=== PATIENT | male | born 1965 | race Caucasian/White ===

== ENCOUNTER → 2016-10-01 | Outpatient (CLI) | payer BC ==
[2016-10-01 14:05] LABS: Follicle Stimulating Hormone 4.1 mIU/mL (1.6-9.7); Prolactin 5.1 ng/mL (3.7-17.9)
== END | disposition home or self-care (01) ==
LOC: LABWHC1 08:56
PROVIDERS: ATTEND Internal Medicine
DX: E34.9 Endocrine disorder, unspecified (principal)
CPT/HCPCS: 36415; 82040; 82672; 83001; 83002; 84146; 84270; 84403; 84702

== ENCOUNTER → 2016-11-11 | Outpatient (CLI) | payer BC ==
[2016-11-11 17:11] LABS: Sex Hormone Binding Globulin 70.2 nmol/L (11.0-57.0); Testosterone, Bioavailable 234.5 ng/dL (60.8-409.9); Testosterone, Free 9.6 ng/dL (3.70-23.28)
== END | disposition home or self-care (01) ==
LOC: LABWHC1 10:14
PROVIDERS: ATTEND Family Medicine
DX: E29.1 Testicular hypofunction (principal)
CPT/HCPCS: 36415; 82040; 82672; 84270; 84403

== ENCOUNTER → 2016-11-29 | Outpatient (CLI) | payer BC ==
--- NOTE | 2016-11-29 15:49 | US ---
EXAMINATION TYPE: US scrotum with doppler. Grayscale and color Doppler Duplex imaging performed of t he scrotum. DATE OF EXAM: 11/29/2016 COMPARISON: NONE CLINICAL HISTORY: E29.1 Hypogonadism, Testicular Hypofunction. EXAM MEASUREMENTS: TESTICLES: Right Testicle: 4.4 x 2.0 x 2.7 cm Left Testicle: 4.4 x 2.1 x 2.7 cm EPIDIDYMIS HEAD: Right Epididymis: 1.2 x 0.8 x 1.3 cm Left Epididymis: 0.9 x 1.1 x 1.3 cm Doppler performed to assess for testicular vascularity; good bilateral color flow and waveforms are s een. There is no evidence of testicular torsion. Presence of hydroceles: no Presence of varicoceles: no 0.3 x 0.3 x 0.3 cm hyperechoic lesion with ill defined border; Shows vascularity IMPRESSION: 1. There is a 3 mm hyperechoic lesion within the left testicle which is nonspecific due to its small size. Testicular neoplasm in the differential diagnosis. Correlate clinically.
== END | disposition home or self-care (01) ==
LOC: RADUSWWP 15:03
PROVIDERS: ATTEND Family Medicine
DX: N50.9 Disorder of male genital organs, unspecified (principal)
CPT/HCPCS: 76870; 93975

== ENCOUNTER → 2017-01-31 | Outpatient (CLI) | payer BC ==
[2017-01-31 11:40] LABS: Basophils % (A) 1 %; CH 30.9; Eosinophils # (A) 0.1 k/uL (0-0.7); Eosinophils % (A) 2 %; HCT 50.8 % (39.0-53.0); HDW 2.39; HGB 16.6 gm/dL (13.0-17.5); Luc % (Auto) 2; Lymphocytes # (A) 1.6 k/uL (1.0-4.8); Lymphocytes % (A) 34 %; MCH 30.7 pg (25.0-35.0); MCHC 32.6 g/dL (31.0-37.0); MCV 94.2 fL (80.0-100.0); Mean Platelet Volume 7.6; Monocytes # (A) 0.4 k/uL (0-1.0); Monocytes % (A) 8 %; Neutrophils # (A) 2.5 k/uL (1.3-7.7); Neutrophils % (A) 54 %; RDW 13.1 % (11.5-15.5); WBC 4.7 k/uL (3.8-10.6); WBC (Perox) 4.31
[2017-01-31 11:50] LABS: AST 25 U/L (17-59); Alkaline Phosphatase 57 U/L (38-126); Anion Gap 10 mmol/L; Blood Urea Nitrogen 15 mg/dL (9-20); Calcium 9.1 mg/dL (8.4-10.2); Carbon Dioxide 22 mmol/L (22-30); Chloride 109 mmol/L (98-107); Glucose 90 mg/dL (74-99); Non-African American GFR(MDRD) >60 (>60 ml/min/1.73 sqM); Potassium 4.5 mmol/L (3.5-5.1); Sodium 141 mmol/L (137-145); Total Bilirubin 0.6 mg/dL (0.2-1.3); Total Protein 6.8 g/dL (6.3-8.2)
[2017-01-31 11:55] LABS: ALT 43 U/L (21-72)
== END | disposition home or self-care (01) ==
LOC: LABWHC1 10:58
PROVIDERS: ATTEND Family Medicine
DX: R53.0 Neoplastic (malignant) related fatigue (principal); R53.83 Other fatigue
CPT/HCPCS: 36415; 80053; 82672; 84153; 84402; 84403; 85025

== ENCOUNTER → 2017-03-15 | Outpatient (CLI) | payer BC ==
--- NOTE | 2017-03-16 06:51 | US ---
EXAMINATION TYPE: US scrotum with doppler. Grayscale and color Doppler Duplex imaging performed of mata sanders scrotum. DATE OF EXAM: 03/15/2017 COMPARISON: US CLINICAL HISTORY: N50.89 Left Testicular Mass. Followup EXAM MEASUREMENTS: TESTICLES: Right Testicle: 3.9 x 3.3 x 2.4 cm Left Testicle: 4.3 x 3.0 x 2.2 cm EPIDIDYMIS HEAD: Right Epididymis: 1.4 x 2.0 x 0.7 cm Left Epididymis: 1.3 x 2.0 x 1.1 cm Doppler performed to assess for testicular vascularity; good bilateral color flow and waveforms are s een. There is no evidence of testicular torsion. Presence of hydroceles: Right scrotal sac hydrocele = 3.3 x 2.4 x 1.7cm. Left scrotal sac hydrocele = 2.7 x 0.9 x 0.8cm. Right epididymal tail cyst is noted = 0.7 x 0.7 x 1.0cm Left testicle: hyperechoic oval focus is noted superiorly as imaged on prior US and size = 0.3 x 0.4 x 0.2cm. IMPRESSION: 1. Overall stable subcentimeter left hyperechoic mass. Hyperechoic testicular masses are most commonl y benign and could represent a lipoma, Small epidermoid, scarring, or less likely tumor. 2. Right epididymal 1 cm cyst. 3. Bilateral moderate hydroceles.
== END | disposition home or self-care (01) ==
LOC: RADUSWWP 15:48
PROVIDERS: ATTEND Urology
DX: N50.89 Other specified disorders of the male genital organs (principal); N50.3 Cyst of epididymis; N43.3 Hydrocele, unspecified
CPT/HCPCS: 76870; 93975

== ENCOUNTER → 2017-06-17 | Outpatient (CLI) | payer BC ==
[2017-06-20 18:42] LABS: Testosterone, Free, LC/MS/MS 67.3 pg/mL (46.0-224.0)
== END | disposition home or self-care (01) ==
LOC: LABWHC1 13:29
PROVIDERS: ATTEND Family Medicine
DX: E29.1 Testicular hypofunction (principal)
CPT/HCPCS: 36415; 82040; 82672; 84270; 84403

== ENCOUNTER → 2017-11-04 | Outpatient (CLI) | payer BC ==
[2017-11-04 14:11] LABS: Albumin 4.4 g/dL (3.5-5.0); Calcium 9.8 mg/dL (8.4-10.2); Potassium 4.7 mmol/L (3.5-5.1); Total Bilirubin 0.9 mg/dL (0.2-1.3); Total Protein 6.9 g/dL (6.3-8.2)
[2017-11-07 16:54] LABS: Testosterone, Free, LC/MS/MS 85.7 pg/mL (46.0-224.0)
== END | disposition home or self-care (01) ==
LOC: LABWHC1 12:56
PROVIDERS: ATTEND Family Medicine
DX: E29.1 Testicular hypofunction (principal)
CPT/HCPCS: 36415; 80053; 82040; 82672; 84270; 84403

== ENCOUNTER → 2018-03-07 | Outpatient (CLI) | payer BC ==
[2018-03-07 11:14] LABS: Basophils % (A) 0 %; Eosinophils % (A) 1 %; HCT 52.3 % (39.0-53.0); HGB 16.6 gm/dL (13.0-17.5); Lymphocytes # (A) 1.3 k/uL (1.0-4.8); Lymphocytes % (A) 32 %; MCH 30.4 pg (25.0-35.0); MCHC 31.7 g/dL (31.0-37.0); MCV 95.9 fL (80.0-100.0); Monocytes # (A) 0.3 k/uL (0-1.0); Monocytes % (A) 6 %; Neutrophils # (A) 2.5 k/uL (1.3-7.7); Neutrophils % (A) 59 %; Platelet Count 176 k/uL (150-450); RBC 5.45 m/uL (4.30-5.90); RDW 14.1 % (11.5-15.5); WBC 4.2 k/uL (3.8-10.6)
[2018-03-07 18:53] LABS: Albumin 4.5 g/dL (3.80-4.90); Albumin/Globulin Ratio 2.14 (1.20-2.10); Anion Gap 6.1 mmol/L (4.00-12.00); Calcium 9.4 mg/dL (8.7-10.3); Carbon Dioxide 29.9 mmol/L (21.6-31.8); Globulin 2.1 g/dL (2.1-3.7); LDL Cholesterol,Calculated 141.8 mg/dL (0.0-131.0); Potassium 4.7 mmol/L (3.5-5.5); Total Bilirubin 0.7 mg/dL (0.2-1.2); Total Protein 6.6 g/dL (6.2-8.2); VLDL Calculation 15.2 mg/dL (5.00-40.00)
[2018-03-08 19:09] LABS: Estrogens Total 53 pg/mL
== END | disposition home or self-care (01) ==
LOC: LABWHC1 10:31
PROVIDERS: ATTEND Family Medicine
DX: Z00.00 Encounter for general adult medical examination without abnormal findings (principal); E29.1 Testicular hypofunction; Z12.5 Encounter for screening for malignant neoplasm of prostate
CPT/HCPCS: 36415; 80053; 80061; 82040; 82672; 84153; 84270; 84403; 84443; 85025

== ENCOUNTER → 2018-06-13 | Outpatient (CLI) | payer BC ==
[2018-06-14 19:15] LABS: Estrogens Total 75 pg/mL
== END | disposition home or self-care (01) ==
LOC: LABWHC1 11:16
PROVIDERS: ATTEND Family Medicine
DX: E29.1 Testicular hypofunction (principal)
CPT/HCPCS: 36415; 82040; 82672; 83001; 83002; 84270; 84403

== ENCOUNTER → 2018-09-14 | Outpatient (CLI) | payer BC ==
[2018-09-15 19:27] LABS: Estrogens Total 146 pg/mL
== END | disposition home or self-care (01) ==
LOC: LABWHC1 12:05
PROVIDERS: ATTEND Family Medicine
DX: E29.1 Testicular hypofunction (principal)
CPT/HCPCS: 36415; 82040; 82672; 84270; 84403

== ENCOUNTER → 2019-01-02 | Outpatient (CLI) | payer BC ==
[2019-01-03 15:16] LABS: Estrogens Total 66 pg/mL
== END | disposition home or self-care (01) ==
LOC: LABWHC1 13:11
PROVIDERS: ATTEND Family Medicine
DX: E29.1 Testicular hypofunction (principal)
CPT/HCPCS: 36415; 82040; 82672; 84153; 84270; 84403

== ENCOUNTER → 2019-03-29 | Outpatient (CLI) | payer BC ==
[2019-03-29 11:58] LABS: Basophils % (A) 0 %; Eosinophils # (A) 0.1 k/uL (0-0.7); Eosinophils % (A) 1 %; HCT 53.2 % (39.0-53.0); HGB 17.9 gm/dL (13.0-17.5); Lymphocytes # (A) 1.5 k/uL (1.0-4.8); Lymphocytes % (A) 25 %; MCH 31.7 pg (25.0-35.0); MCHC 33.6 g/dL (31.0-37.0); MCV 94.3 fL (80.0-100.0); Mean Platelet Volume 7.4; Monocytes # (A) 0.4 k/uL (0-1.0); Monocytes % (A) 7 %; Neutrophils # (A) 3.9 k/uL (1.3-7.7); Neutrophils % (A) 65 %; Platelet Count 165 k/uL (150-450); RBC 5.64 m/uL (4.30-5.90); RDW 13.2 % (11.5-15.5); WBC 5.9 k/uL (3.8-10.6)
[2019-03-29 20:15] LABS: Albumin 4.6 g/dL (3.80-4.90); Albumin/Globulin Ratio 2.3 (1.60-3.17); Anion Gap 7.8 mmol/L (4.00-12.00); BUN/Creat Ratio 12.14 Ratio (12.00-20.00); Calcium 9.5 mg/dL (8.7-10.3); Carbon Dioxide 28.2 mmol/L (21.6-31.8); Chol/HDL Ratio 5.43; LDL Cholesterol,Calculated 154.2 mg/dL (0.0-131.0); Potassium 4.8 mmol/L (3.5-5.5); Total Bilirubin 0.9 mg/dL (0.2-1.2); Total Protein 6.6 g/dL (6.2-8.2); VLDL Calculation 31.8 mg/dL (5.00-40.00)
[2019-03-29 22:14] LABS: Hemoglobin A1C 5.4 % (4.0-6.0)
[2019-03-30 22:04] LABS: Estrogens Total 58 pg/mL
== END | disposition home or self-care (01) ==
LOC: LABWHC1 11:16
PROVIDERS: ATTEND Family Medicine
DX: Z00.00 Encounter for general adult medical examination without abnormal findings (principal); E23.0 Hypopituitarism; Z12.5 Encounter for screening for malignant neoplasm of prostate
CPT/HCPCS: 36415; 80053; 80061; 82040; 82672; 83036; 84153; 84270; 84403; 84443; 85025

== ENCOUNTER 2019-11-27 03:31 | Emergency (ER) | payer BC, OTHER ==
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
[2019-11-27] MEDS ORDERED: ASPIRIN 81 MG PO STA (03:47)
[2019-11-27] MEDS ORDERED: NITROGLYCERIN SL TABS 0.4 MG TAB SUBLINGUAL PRN (03:47)
[2019-11-27 03:51] LABS: Basophils # (A) 0.1 k/uL (0-0.2); Basophils % (A) 1 %; Eosinophils # (A) 0.1 k/uL (0-0.7); Eosinophils % (A) 2 %; HCT 51.7 % (39.0-53.0); HGB 16.7 gm/dL (13.0-17.5); Lymphocytes # (A) 1.5 k/uL (1.0-4.8); Lymphocytes % (A) 19 %; MCH 30.4 pg (25.0-35.0); MCHC 32.3 g/dL (31.0-37.0); MCV 94.2 fL (80.0-100.0); Mean Platelet Volume 8.9; Monocytes # (A) 0.5 k/uL (0-1.0); Monocytes % (A) 7 %; Neutrophils # (A) 5.4 k/uL (1.3-7.7); Neutrophils % (A) 70 %; Platelet Count 172 k/uL (150-450); RBC 5.49 m/uL (4.30-5.90); RDW 13.7 % (11.5-15.5); WBC 7.6 k/uL (3.8-10.6)
[2019-11-27 03:57] VITALS: TEMP 98.2
[2019-11-27 04:01] LABS: Albumin 4.5 g/dL (3.5-5.0); Calcium 10.1 mg/dL (8.4-10.2); Magnesium 2.1 mg/dL (1.6-2.3); Potassium 4.2 mmol/L (3.5-5.1); Total Bilirubin 0.5 mg/dL (0.2-1.3)
--- NOTE | 2019-11-27 04:02 | XR ---
EXAMINATION TYPE: XR chest 2V DATE OF EXAM: 11/27/2019 COMPARISON: NONE HISTORY: Chest pain TECHNIQUE: 2 views FINDINGS: Heart and mediastinum are normal. Lungs are clear of infiltrate. There is no pleural effusi on. There are no hilar masses. IMPRESSION: No active cardiopulmonary disease. Normal heart.
[2019-11-27 04:06] LABS: Prothrombin Time 10.3 sec (9.0-12.0)
[2019-11-27 04:14] LABS: Partial Thromboplastin Time 21.8 sec (22.0-30.0)
[2019-11-27] MEDS ORDERED: SODIUM CHLORIDE 0.9% 1,000 ML IV ONE (05:08)
[2019-11-27 07:06] VITALS: BP 120/78; PULSE 60; RESP 18
== END 2019-11-27 07:12 | disposition home or self-care (01) ==
LOC: EC 03:31
DX: R07.89 Other chest pain (principal); M25.512 Pain in left shoulder; X00.0XXA Exposure to flames in uncontrolled fire in building or structure, initial encounter; Y93.89 Activity, other specified; Y99.8 Other external cause status
CPT/HCPCS: 36415; 71046; 80053; 82375; 82550; 83605; 83735; 83880; 84484; 85025; 85610; 85730; 93005; 96360; 96361; 99285

== ENCOUNTER → 2019-11-29 | Outpatient (CLI) | payer BC ==
[2019-11-29 13:56] LABS: Basophils % (A) 0 %; Eosinophils # (A) 0.1 k/uL (0-0.7); Eosinophils % (A) 1 %; HGB 18.1 gm/dL (13.0-17.5); Lymphocytes # (A) 1.7 k/uL (1.0-4.8); Lymphocytes % (A) 33 %; MCH 30.9 pg (25.0-35.0); MCHC 32.4 g/dL (31.0-37.0); MCV 95.4 fL (80.0-100.0); Monocytes # (A) 0.3 k/uL (0-1.0); Monocytes % (A) 6 %; Neutrophils # (A) 2.9 k/uL (1.3-7.7); Neutrophils % (A) 58 %; Platelet Count 172 k/uL (150-450); RBC 5.85 m/uL (4.30-5.90); RDW 13.5 % (11.5-15.5); WBC 5.1 k/uL (3.8-10.6)
[2019-11-29 13:59] LABS: HCT 55.8 % (39.0-53.0)
[2019-11-29 18:51] LABS: African American GFR (CKD) 88.4 (60.0-200.0); Albumin 4.4 g/dL (3.80-4.90); Albumin/Globulin Ratio 2.1 (1.60-3.17); Anion Gap 8.3 mmol/L (4.00-12.00); BUN/Creat Ratio 17.27 Ratio (12.00-20.00); Calcium 9.2 mg/dL (8.7-10.3); Carbon Dioxide 23.7 mmol/L (21.6-31.8); Globulin 2.1 g/dL (1.6-3.3); Non-African American GFR(CKD) 76.2 (60.0-200.0); Potassium 4.6 mmol/L (3.5-5.5); Total Bilirubin 0.9 mg/dL (0.2-1.2); Total Protein 6.5 g/dL (6.2-8.2)
[2019-11-29 20:44] LABS: Hemoglobin A1C 5.4 % (4.0-6.0)
[2019-11-30 15:19] LABS: Estrogens Total 166 pg/mL
== END | disposition home or self-care (01) ==
LOC: LABWHC1 12:49
PROVIDERS: ATTEND Family Medicine
DX: Z00.00 Encounter for general adult medical examination without abnormal findings (principal)
CPT/HCPCS: 36415; 80053; 82040; 82672; 83036; 84153; 84270; 84403; 85025

== ENCOUNTER → 2020-05-09 | Outpatient (CLI) | payer BC ==
[2020-05-13 13:41] LABS: Albumin, LC/MS/MS 4.4 g/dL (3.6-5.1); Testosterone, Free, LC/MS/MS 97.4 pg/mL (46.0-224.0)
== END | disposition home or self-care (01) ==
LOC: LABWHC1 08:59
PROVIDERS: ATTEND Family Medicine
DX: E23.0 Hypopituitarism (principal)
CPT/HCPCS: 36415; 82040; 82672; 84153; 84270; 84403

== ENCOUNTER → 2020-12-03 | Outpatient (CLI) | payer BC ==
[2020-12-03 15:04] LABS: Basophils # (A) 0.02 X 10*3/uL (0.00-0.10); Basophils % (A) 0.4 %; Eosinophils % (A) 2.1 %; HCT 55.9 % (39.6-50.0); Lymphocytes % (A) 33.7 %; MCH 30.7 pg (27.0-32.0); MCHC 32.2 g/dL (32.0-37.0); MCV 95.4 fL (80.0-97.0); Mean Platelet Volume 11.9 fL (9.5-12.2); Monocytes # (A) 0.44 X 10*3/uL (0.20-1.00); Monocytes % (A) 9.3 %; Neutrophils # (A) 2.58 X 10*3/uL (1.80-7.70); Neutrophils % (A) 54.3 %; Platelet Count 171 X 10*3/uL (140-440); RBC 5.86 X 10*6/uL (4.40-5.60); WBC 4.75 X 10*3/uL (4.50-10.00)
[2020-12-04 05:47] LABS: ALT 43 U/L (10-49); AST 32 U/L (14-35); African American GFR (CKD) 65.5 (60.0-200.0); Albumin/Globulin Ratio 1.84 (1.60-3.17); Alkaline Phosphatase 61 U/L (41-126); BUN/Creat Ratio 13.57 Ratio (12.00-20.00); Calcium 9.6 mg/dL (8.7-10.3); Carbon Dioxide 26.5 mmol/L (21.6-31.8); Chloride 106 mmol/L (96-109); Chol/HDL Ratio 4.39; Cholesterol 224 mg/dL (0-200); Globulin 2.5 g/dL (1.6-3.3); Glucose 106 mg/dL (70-110); Non-African American GFR(CKD) 56.6 (60.0-200.0); Potassium 4.8 mmol/L (3.5-5.5); Sodium 143 mmol/L (135-145); Total Bilirubin 0.8 mg/dL (0.3-1.2); Total Protein 7.1 g/dL (6.2-8.2)
[2020-12-04 05:55] LABS: Prostate Specific Antigen 1.1 ng/mL (0.0-3.5)
[2020-12-04 06:23] LABS: Folate, Serum >24.0 ng/mL
[2020-12-04 17:15] LABS: Estrogens Total 45 pg/mL
== END | disposition home or self-care (01) ==
LOC: LABWHC1 09:03
PROVIDERS: ATTEND Nurse Practitioner Adult Health
DX: Z00.00 Encounter for general adult medical examination without abnormal findings (principal); E23.0 Hypopituitarism; E53.8 Deficiency of other specified B group vitamins
CPT/HCPCS: 36415; 80053; 80061; 82040; 82607; 82672; 82746; 84153; 84270; 84403; 84439; 84443; 85025

== ENCOUNTER → 2021-09-18 | Outpatient (CLI) | payer BC | END | disposition home or self-care (01) | LOC: LABWHC1 11:11 | PROVIDERS: ATTEND Family Medicine | DX: E23.0 Hypopituitarism (principal) | CPT/HCPCS: 36415; 82040; 82672; 84270; 84403 ==

== ENCOUNTER → 2022-04-09 | Outpatient (CLI) | payer BC ==
[2022-04-09 23:09] LABS: Basophils # (A) 0.03 X 10*3/uL (0.00-0.10); Basophils % (A) 0.5 %; Eosinophils # (A) 0.06 X 10*3/uL (0.04-0.35); Eosinophils % (A) 0.9 %; HCT 56.3 % (39.6-50.0); HGB 18.4 g/dL (13.0-17.0); Immature Grans, Automated 0.3 %; Lymphocytes # (A) 1.27 X 10*3/uL (0.90-5.00); Lymphocytes % (A) 19.9 %; MCH 31.4 pg (27.0-32.0); MCHC 32.7 g/dL (32.0-37.0); MCV 96.1 fL (80.0-97.0); Monocytes # (A) 0.54 X 10*3/uL (0.20-1.00); Monocytes % (A) 8.5 %; NRBC Per 100 WBC 0 /100 WBCS (0.0-0.0); Neutrophils # (A) 4.47 X 10*3/uL (1.80-7.70); Neutrophils % (A) 69.9 %; Platelet Count 170 X 10*3/uL (140-440); RBC 5.86 X 10*6/uL (4.40-5.60); RDW 12.8 % (11.5-14.5); WBC 6.39 X 10*3/uL (4.50-10.00)
[2022-04-10 02:49] LABS: ALT 35 U/L (10-49); AST 21 U/L (14-35); African American GFR (CKD) 73.4 (60.0-200.0); Albumin 4.4 g/dL (3.8-4.9); Albumin/Globulin Ratio 1.91 (1.60-3.17); Alkaline Phosphatase 57 U/L (41-126); BUN/Creat Ratio 12.78 Ratio (12.00-20.00); Blood Urea Nitrogen 16.1 mg/dL (9.0-27.0); Calcium 9.5 mg/dL (8.7-10.3); Carbon Dioxide 26.3 mmol/L (20.0-27.5); Chloride 108 mmol/L (96-109); Chol/HDL Ratio 5.87 Ratio; Globulin 2.3 g/dL (1.6-3.3); Glucose 93 mg/dL (70-110); Non-African American GFR(CKD) 63.3 (60.0-200.0); Potassium 4.9 mmol/L (3.5-5.5); Sodium 143 mmol/L (135-145); Total Protein 6.6 g/dL (6.2-8.2)
== END | disposition home or self-care (01) ==
LOC: LABWHC1 14:23
PROVIDERS: ATTEND Nurse Practitioner Adult Health
DX: Z00.00 Encounter for general adult medical examination without abnormal findings (principal); Z13.1 Encounter for screening for diabetes mellitus; E23.0 Hypopituitarism
CPT/HCPCS: 36415; 80053; 80061; 82672; 83036; 84153; 84403; 84439; 84443; 85025

== ENCOUNTER → 2022-10-21 | Outpatient (CLI) | payer BC ==
[2022-10-21 20:09] LABS: ALT 41 U/L (10-49); AST 31 U/L (14-35); Albumin 4.7 d/dL (3.8-4.9); Albumin/Globulin Ratio 1.96 Ratio (1.60-3.17); Alkaline Phosphatase 54 U/L (41-126); BUN/Creat Ratio 10.62 Ratio (12.00-20.00); Blood Urea Nitrogen 13.8 mg/dL (9.0-27.0); Carbon Dioxide 27.5 mmol/L (21.6-31.8); Chloride 103 mmol/L (96-109); Chol/HDL Ratio 4.94 Ratio; Globulin 2.4 d/dL (1.6-3.3); Glucose 92 mg/dL (70-110); LDL Cholesterol,Calculated 166.4 mg/dL (0.0-131.0); Potassium 4.7 mmol/L (3.5-5.5); Sodium 142 mmol/L (135-145); Total Bilirubin 0.7 mg/dL (0.3-1.2); Total Protein 7.1 d/dL (6.2-8.2)
[2022-10-21 22:04] LABS: Basophils # (A) 0.02 X 10*3/uL (0.00-0.10); Basophils % (A) 0.4 %; Eosinophils # (A) 0.06 X 10*3/uL (0.04-0.35); Eosinophils % (A) 1.2 %; HCT 59.4 % (39.6-50.0); HGB 19.5 d/dL (12.0-15.0); Lymphocytes # (A) 1.52 X 10*3/uL (0.90-5.00); Lymphocytes % (A) 29.4 %; MCH 31.3 pg (27.0-32.0); MCHC 32.8 d/dL (32.0-37.0); MCV 95.2 FL (80.0-97.0); Mean Platelet Volume 11.7 FL (9.5-12.2); Monocytes # (A) 0.44 X 10*3/uL (0.20-1.00); Monocytes % (A) 8.5 %; NRBC Per 100 WBC 0 X 10*3/uL (0.00-0.01); Neutrophils # (A) 3.12 X 10*3/uL (1.80-7.70); Neutrophils % (A) 60.3 %; Platelet Count 215 X 10*3/uL (140-440); RBC 6.24 X 10*6/uL (4.40-5.60); RDW 14.1 % (11.5-14.5); WBC 5.17 X 10*3/uL (4.50-10.00)
== END | disposition home or self-care (01) ==
LOC: LABWHC1 14:03
PROVIDERS: ATTEND Family Medicine
DX: Z00.00 Encounter for general adult medical examination without abnormal findings (principal); Z12.5 Encounter for screening for malignant neoplasm of prostate; E29.1 Testicular hypofunction; R53.83 Other fatigue; Z79.899 Other long term (current) drug therapy
CPT/HCPCS: 36415; 80053; 80061; 82040; 82672; 83036; 84153; 84270; 84403; 84443; 85025

== ENCOUNTER → 2022-10-27 | Outpatient (CLI) | payer BC | END | disposition home or self-care (01) | LOC: LABWHC1 15:02 | PROVIDERS: ATTEND Family Medicine | DX: Z00.00 Encounter for general adult medical examination without abnormal findings (principal); Z12.5 Encounter for screening for malignant neoplasm of prostate; E29.1 Testicular hypofunction; R53.83 Other fatigue; Z79.899 Other long term (current) drug therapy | CPT/HCPCS: 36415; 82672 ==

== ENCOUNTER → 2022-11-18 | Outpatient (CLI) | payer BC ==
--- NOTE | 2022-11-18 13:26 | CA ---
Stress Echo Report Cody Garcia Age: 56 Gender: M : 1965 Exam Date: 11/18/2022 09:44 Exam Location: [facility] Ht (in): 72 Wt (lb): 219 Ordering Physician: Devonte Carpenter MD Referring Physician: Pauline MERCADO Truck Engine Technician: LIZETH, Technologist Procedure CPT: Indication: R68.89 general signs and symptoms ICD-9 Codes: Rhythm: Patient History: General sympoms and signs Cardiac Medications: Medications in past 24 hours: Contrast: Stress Results Protocol: Lester Total dose(mL): Exercise Duration (min:sec): 10:[address] Depression (mm): Angina Score: Ibanez Score: METS: 11.9 Resting HR: 76 Resting BP: 120 / 86 Peak HR: 160 Peak BP: 170 / 62 Max Predicted HR: 164 98 % Max Predicted HR Target HR: 139 Double Product: [id number] Stress Summary: BP Response: Normal Reason for Termination: Reached target heart rate or work-load Cardiac Symptoms: No symptoms ECG Analysis Resting ECG: Normal sinus rhythm, normal ECG Stress ECG: Borderline ST depression - inferior leads Arrhythmia: Occasional PVCs Echo Analysis Resting Echo: Normal resting echocardiogram. Peak Echo Analysis: Normal wall thickening and motion MEASUREMENTS (Male/Female) Normal Values CONCLUSIONS 1. Good exercise tolerance with borderline positive electrocardiographic stress testing 2. Normal stress echocardiogram with no evidence of stress- induced ischemia. Dr. Destinee Springer MD (Electronically Signed) Final Date: 18 November 2022 13:25
== END | disposition home or self-care (01) ==
LOC: RADNMMAIN 09:09
PROVIDERS: ATTEND Family Medicine
DX: R68.89 Other general symptoms and signs (principal)
CPT/HCPCS: 93351

== ENCOUNTER → 2023-09-13 | Outpatient (CLI) | payer BC ==
--- NOTE | 2023-09-13 21:04 | US ---
EXAMINATION TYPE: US prostate transrectal DATE OF EXAM: 09/13/2023 COMPARISON: NONE CLINICAL INDICATION: Male, 57 years old with history of N40.0 BENIGN PROSTATIC HYPERPLASIA WITHOUT LO WER U; flow has diminished while urgency has increased for 3 months, normal PSA per patient This examination was performed using the transrectal probe. EXAM MEASUREMENTS: Gland Size: 4.9 x 5.0 x 3.6cm Volume: 46.7 Predicted PSA: 5.6 Actual PSA (if available):1.2 - from 2021, did not have most recent Heterogeneous PZ with no obvious lesion noted, enlarged gland IMPRESSION: No suspicious prostate masses. If there remains concern consider MRI prostate for a more sensitive exam for clinically significant prostate adenocarcinoma. Predicted PSA = volume x 0.12 ng/ml Calculated Volume = 0.5236 x L x W x H
== END | disposition home or self-care (01) ==
LOC: RADUSWWP 13:43
PROVIDERS: ATTEND Family Medicine
DX: N40.0 Benign prostatic hyperplasia without lower urinary tract symptoms (principal)
CPT/HCPCS: 76872

== ENCOUNTER → 2024-08-02 | Outpatient (CLI) | payer BC ==
--- NOTE | 2024-08-02 12:38 | US ---
EXAMINATION TYPE: US kidneys/renal and bladder DATE OF EXAM: 08/02/2024 COMPARISON: NONE CLINICAL INDICATION: Male, 58 years old with history of N20.0 CALCULUS OF KIDNEY; Hx of stones. TECHNIQUE: Grayscale imaging of the bilateral kidneys and urinary bladder: FINDINGS: EXAM MEASUREMENTS: Right Kidney: 13.3 x 5.2 x 5.6 cm Left Kidney: 12 x 6.4 x 5.9 cm Right Kidney: Anechoic area compatible simple cyst lower pole measuring 6.2 x 6.0 x 6.2 cm. Left Kidney: Moderate Hydronephrosis visualized no definite stones seen. Bladder: Anechoic Bilateral Jets seen: yes Urinary bladder is unremarkable. Posterior wall is normal. No nephrolithiasis is seen. No masses are identified. IMPRESSION: 1. Moderate left hydronephrosis is present. The obstructing etiology is not identified. 2. Inferior pole right renal cyst [facility], , 08/02/2024 12:36 PM
== END | disposition home or self-care (01) ==
LOC: RADUSWWP 10:34
PROVIDERS: ATTEND Family Medicine
DX: N13.2 Hydronephrosis with renal and ureteral calculous obstruction (principal); N28.1 Cyst of kidney, acquired
CPT/HCPCS: 76770

== ENCOUNTER → 2024-08-13 | Outpatient (CLI) | payer BC ==
--- NOTE | 2024-08-13 21:01 | CT ---
EXAMINATION TYPE: CT abdomen pelvis wo con DATE OF EXAM: 08/13/2024 7:29 PM COMPARISON: CT abdomen pelvis most recent from CLINICAL INDICATION: Male, 58 years old with history of N13.30 UNSPECIFIED HYDRONEPHROSIS; F/u for hy dronephrosis seen on US. TECHNIQUE: Axial CT abdomen pelvis wo con;Sagittal and coronal reformats were created on a separate workstation. Contrast used: mL of , (none if empty) Oral contrast used: without Oral Contrast (none if empty) CT DLP: 733.1 mGycm, Automated exposure control for dose reduction was used. FINDINGS: LOWER CHEST: Unremarkable ABDOMEN LIVER: Unremarkable GALLBLADDER AND BILE DUCTS: Unremarkable. PANCREAS: Unremarkable. SPLEEN: Unremarkable. ADRENAL GLANDS: Unremarkable. KIDNEYS AND URETERS: Mild right hydronephrosis secondary obstructing ureteropelvic Junction 12 x 18 m m calculus. Additional nonobstructing left renal calculi measuring up to 5 mm. No right renal calculi . Right renal probable simple cyst measuring 6.9 cm. No follow-up recommended. PELVIS BLADDER: No evidence for wall thickening or mass given limitations of exam. REPRODUCTIVE: Prostate is enlarged in size measuring 5.5 cm in transverse dimension. ABDOMEN & PELVIS STOMACH AND BOWEL: No evidence of bowel obstruction. The appendix is normal. PERITONEUM/RETROPERITONEUM: No evidence of pneumoperitoneum or free fluid. VASCULATURE: No evidence of aortic aneurysm. MUSCULOSKELETAL: No acute osseous abnormalities. 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 LYMPH NODES: No gross evidence for lymphadenopathy. SOFT TISSUE/ABDOMINAL WALL: Fat-containing left inguinal hernia. IMPRESSION: 1. Mild left hydronephrosis secondary obstructing 12 x 18 mm calculus at the ureteropelvic junction. Additional left nonobstructing obstructing calculi. 2. Bilateral fat-containing inguinal hernias. 3. Prostatomegaly, correlate serum PSA. 4. The appendix normal. 5. 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 [facility], , 08/13/2024 8:59 PM
== END | disposition home or self-care (01) ==
LOC: RADCTMAIN 18:38
PROVIDERS: ATTEND Family Medicine
DX: N13.2 Hydronephrosis with renal and ureteral calculous obstruction (principal); K40.20 Bilateral inguinal hernia, without obstruction or gangrene, not specified as recurrent; N40.0 Benign prostatic hyperplasia without lower urinary tract symptoms; M43.16 Spondylolisthesis, lumbar region; M47.816 Spondylosis without myelopathy or radiculopathy, lumbar region
CPT/HCPCS: 74176

== ENCOUNTER → 2024-08-22 | Outpatient (CLI) | payer BC ==
[2024-08-22 19:51] LABS: Basophils # (A) 0.04 X 10*3/uL (0.00-0.10); Basophils % (A) 0.6 %; Eosinophils # (A) 0.09 X 10*3/uL (0.04-0.35); Eosinophils % (A) 1.3 %; HCT 54.2 % (39.6-50.0); HGB 18.1 g/dL (13.0-17.0); Lymphocytes # (A) 1.69 X 10*3/uL (0.90-5.00); Lymphocytes % (A) 24.8 %; MCHC 33.4 g/dL (32.0-37.0); MCV 92.8 FL (80.0-97.0); Mean Platelet Volume 11.9 FL (9.5-12.2); Monocytes # (A) 0.51 X 10*3/uL (0.20-1.00); Monocytes % (A) 7.5 %; NRBC Per 100 WBC 0 X 10*3/uL (0.00-0.01); Neutrophils # (A) 4.47 X 10*3/uL (1.80-7.70); Neutrophils % (A) 65.7 %; Platelet Count 177 X 10*3/uL (140-440); RBC 5.84 X 10*6/uL (4.40-5.60); RDW 13.4 % (11.5-14.5); WBC 6.81 X 10*3/uL (4.50-10.00)
[2024-08-22 20:02] LABS: BUN/Creat Ratio 15.77 Ratio (12.00-20.00); Blood Urea Nitrogen 20.5 mg/dL (9.0-27.0); Calcium 9.5 mg/dL (8.7-10.3); Carbon Dioxide 22.9 mmol/L (21.6-31.8); Chloride 106 mmol/L (96-109); Glucose 84 mg/dL (70-110); Potassium 4.3 mmol/L (3.5-5.5); Sodium 140 mmol/L (135-145)
== END | disposition home or self-care (01) ==
LOC: LABPAT 15:18
PROVIDERS: ATTEND Urology
DX: Z01.812 Encounter for preprocedural laboratory examination (principal); N20.1 Calculus of ureter
CPT/HCPCS: 80048; 85025

== ENCOUNTER 2024-08-23 08:33 | Day surgery (SDC) | payer BC ==
[2024-08-22 08:55] VITALS: BMI 29.5
--- NOTE | 2024-08-22 21:14 | P.GSHP ---
History of Present Illness H&P Date: 08/22/24 Chief Complaint: Left hydronephrosis The patient is a 58-year-old white male who underwent imaging 1 year ago revealing a kidney stone. He has a history of lumbar spondylosis and recently underwent imaging, which reveals left hydronephrosis due to a 12 x 20 mm left proximal ureteral calculus. Alternative treatment options were reviewed in detail with the patient, who has elected to undergo ureteroscopy with laser lithotripsy, possible stone basketing, and left ureteral stent insertion. - Constitutional Constitutional: Denies chills, Denies fever - Gastrointestinal Gastrointestinal: Denies nausea, Denies vomiting - Genitourinary (Male) Genitourinary: Reports kidney stones, Denies dysuria, Denies flank pain, Denies hematuria - Musculoskeletal Musculoskeletal: Reports low back pain Past Medical History Past Medical History: Cancer Additional Past Medical History / Comment(s): kidney stones, spondylosis, hx of skin CA History of Any Multi-Drug Resistant Organisms: None Reported Past Surgical History: Orthopedic Surgery Additional Past Surgical History / Comment(s): knee repair surgery 2018, skin CA removal basal cell carcinoma Past Anesthesia/Blood Transfusion Reactions: No Reported Reaction Additional Past Anesthesia/Blood Transfusion Reaction / Comment(s): No hx of blood tranfusion Smoking Status: Former smoker Medications and Allergies Home Medications Medication Instructions Recorded Confirmed Type Anastrozole [Arimidex] 1 mg PO Q72H 11/27/19 08/22/24 History Multivitamins, Thera [Multivitamin 1 tab PO DAILY 11/27/19 08/22/24 History (formulary)] Testosterone Cypionate 200 mg IM FR 11/27/19 08/22/24 History [Depo-Testosterone] Dextroamphetamine/Amphetamine 10 mg PO QAM 08/22/24 08/22/24 History [Adderall Xr 10 mg Capsule] Tamsulosin HCl [Flomax] 0.4 mg PO QAM 08/22/24 08/22/24 History tadalafiL 5 mg PO HS 08/22/24 08/22/24 History Allergies Allergy/AdvReac Type Severity Reaction Status Date / Time No Known Allergies Allergy Verified 08/22/24 08:55 Surgical - Exam - General well developed, well nourished, no distress - Respiratory normal respiratory effort - Abdomen Abdomen: soft, non tender, no guarding, no rigid, no rebound - Rectum Rectum: normal sphincter tone, no masses, other (Prostate moderately enlarged but smooth) - Psychiatric oriented to time, oriented to person, oriented to place, speech is normal, memory intact Results - Imaging CT scan - abdomen: report reviewed Assessment and Plan (1) Calculus of ureter Status: Acute Code(s): N20.1 - CALCULUS OF URETER SNOMED Code(s): 10633159 Plan: Cystoscopy, left ureteroscopy with Holmium laser lithotripsy, possible stone basketing, left ureteral stent insertion. The procedure has been reviewed in detail with the patient. He has been made aware of potential risks, which include anesthesia, bleeding, infection, ureteral injury, and inability to remove the calculus. He is also aware of the possible need for a secondary procedure.
[~2024-08-23 08:33] MED LIST: HYDROmorphone 0.5 MG/0.5 ML SYRINGE IVP PRN
--- NOTE | 2024-08-23 09:07 | XR ---
EXAMINATION TYPE: XR KUB DATE OF EXAM: 08/23/2024 8:58 AM COMPARISON: None. CLINICAL INDICATION: Male, 58 years old with history of N20.1 left ureteral calculus, TECHNIQUE: Single view of the abdomen. FINDINGS: Right renal calculi: None Visualized. Right ureteral calculi: None Visualized. Left renal calculi: Suggestion of lower pole left renal calculi. Left ureteral calculi: Large left UPJ calculus measuring 2.3 cm craniocaudal dimension by 1.3 cm tra nsverse dimension. Pelvic calcifications: Yes Bowel gas pattern is unremarkable. No free air. No mass effects. IMPRESSION: 1. Large left UPJ calculus measuring 2.3 cm craniocaudal dimension by 1.3 cm transverse dimension. [facility], , 08/23/2024 9:05 AM
[2024-08-23 09:19] VITALS: RESP 16
[2024-08-23] MEDS: IV FLUID CONTINUATION 1,000 ML IV ONE (09:28)
[2024-08-23] MEDS: LACTATED RINGERS 1,000 ML IV SCH (09:29)
[2024-08-23] MEDS: DEXAMETHASONE SOD PHOSPHATE 4 MG/ML 1 ML VIAL IV ONE (09:33)
[2024-08-23] MEDS: ONDANSETRON 4 MG/2 ML VIAL IVP ONE (09:33)
[2024-08-23] MEDS ORDERED: GLYCOPYRROLATE 0.2 MG/ML 2 ML VIAL ONE (10:28)
[2024-08-23] MEDS ORDERED: MIDAZOLAM 2 MG/2 ML VIAL ONE (10:28)
[2024-08-23] MEDS ORDERED: ROCURONIUM 10 MG/ML (5 ML VIAL) IV ONE (10:28)
[2024-08-23] MEDS ORDERED: PROPOFOL 10 MG/ML 20 ML VIAL IV ONE (10:28)
[2024-08-23] MEDS ORDERED: SUCCINYLCHOLINE CHLORIDE 200 MG/10 ML VIAL IV ONE (10:28)
[2024-08-23] MEDS ORDERED: LIDOCAINE 1% INJ 10MG/ML (20 ML MDV) ONE (10:28)
[2024-08-23] MEDS ORDERED: fentaNYL (PF) 50 MCG/ML 2 ML AMP ONE (10:28)
[2024-08-23] MEDS ORDERED: NEOSTIGMINE 1 MG/ML 10 ML VIAL ONE (10:28)
[2024-08-23] MEDS: ceFAZolin 2 GM in DEXTROSE 5% IN WATER 50 ML IVPB PRN (10:45)
[2024-08-23] MEDS: LACTATED RINGERS 1,000 ML IV ONE (11:23)
--- NOTE | 2024-08-23 12:22 | P.OP ---
Date of Procedure: 08/23/24 Preoperative Diagnosis: Left ureteral calculus Postoperative Diagnosis: Same Procedure(s) Performed: Cystoscopy, left ureteroscopy with Holmium laser lithotripsy and stone basketing, left ureteral stent insertion Anesthesia: GENI Surgeon: Zachary Jerez Estimated Blood Loss (ml): 5 IV fluids (ml): 500 Pathology: other (Left ureteral calculus fragments, sent for chemical analysis) Condition: stable Disposition: PACU Indications for Procedure: The patient is a 58-year-old white male who underwent imaging 1 year ago revealing a kidney stone. He has a history of lumbar spondylosis and recently underwent imaging, which reveals left hydronephrosis due to a 12 x 20 mm left proximal ureteral calculus. Alternative treatment options were reviewed in detail with the patient, who has elected to undergo ureteroscopy with laser lithotripsy, possible stone basketing, and left ureteral stent insertion. Operative Findings: Large calculus impacted within the left proximal ureter. Description of Procedure: The patient was taken to the operating room and placed in the dorsolithotomy position, with legs supported in Jovani stirrups. The external genitalia was prepped and draped sterilely. The 30 lens was used to introduce the 21-Tajik Dumas cystoscopic sheath through the urethra and into the bladder under direct vision. The prostatic urethra showed evidence of mild lateral lobe enlargement. The bladder was examined in its entirety. Both ureteral orifices were normal anatomic location and configuration. No tumors or foreign bodies were seen. A 0.038 inch Glidewire was passed through the cystoscope. The left ureteral orifice was cannulated, and the Glidewire was advanced up to the calculus. The cystoscope was removed, and an 11/13-Tajik ureteral access catheter was passed over the wire, up to the mid ureter. The Dumas [employer] flexible ureteroscope was then passed through the ureteral access catheter sheath, up to the stone. The 272 micron Holmium laser probe was passed through the ureteroscope, and lithotripsy was performed. The calculus was large and impacted, but fragmented readily. The mucosa had begun to grow over the edge of the calculus. The central portion of the calculus was fragmented, and as the periphery of the stone began to break the tip of the laser was used to pry the calculus fragment away from the ureteral wall so that all lasering was done within the ureteral lumen to avoid ureteral injury. A combination of dusting and fragmenting was performed, leaving many small fragments which passed distally through the ureteral access catheter sheath. Portions of the calculus broke away and refluxed into the kidney. The ureteroscope was advanced into the kidney. Several of the larger fragments were removed using a 0 tip 1.9 Tajik nitinol basket. The remaining fragments were treated via a popcorning mode, leaving no residual calculus fragments exceeding the size of the laser fiber tip. The ureteroscope was slowly withdrawn along with the ureteral access catheter sheath. Pullout ureteroscopy showed no evidence of ureteral trauma. Mild induration was noted at the site of stone impaction. The Glidewire was passed through the ureteroscope, and backloaded into the cystoscope. A 28 cm, 4.8 Tajik double-J ureteral stent was placed over the wire. Proper stent positioning was verified fluoroscopically and endoscopically. The bladder was emptied and the cystoscope removed. The patient tolerated the procedure well and was taken to the recovery room in stable condition. [facility] Report: Procedure Acuity: Elective Stone Size and Location: Left proximal ureter, 12 x 20 mm Ureteral Dilation: No Ureteral Access Sheath Used: Yes Stone Sent for Analysis: Yes All Stones/Fragments Were Removed with a Basket: Yes Complications: No Preoperative Antibiotics Given: Yes Stent Placed: Yes If Stent Placed, Was String Left Attached: No If Stent Placed, When is it to be Removed: 2 weeks Discharge Medications: Toradol, tamsulosin
[2024-08-23 12:33] VITALS: TEMP 97.6
--- NOTE | 2024-08-23 12:53 | FL ---
Fluoroscopy History: CYSTOSCOPY LITHOTRPSY PHILIP URETE Cysto for left kidney stone/stent insertion 52sec fluoro time .[id number] [facility], , 08/23/2024 12:51 PM
[2024-08-23 14:05] VITALS: BP 134/82; PULSE 53
== END 2024-08-23 14:20 | disposition home or self-care (01) ==
LOC: OR 08:33
PROVIDERS: ATTEND Urology
DX: N13.2 Hydronephrosis with renal and ureteral calculous obstruction (principal); M47.816 Spondylosis without myelopathy or radiculopathy, lumbar region; F98.8 Other specified behavioral and emotional disorders with onset usually occurring in childhood and adolescence; Z79.811 Long term (current) use of aromatase inhibitors; Z79.899 Other long term (current) drug therapy; Z87.891 Personal history of nicotine dependence; Z85.828 Personal history of other malignant neoplasm of skin
CPT/HCPCS: 52356; 82365; 74018; C2625; C1769; J2250; J0330; J1100; J2710; J0690; J2405; J2003; J3010; J2704; J1596

== ENCOUNTER 2024-08-29 18:06 | Inpatient (IN) | payer BC ==
--- NOTE | 2024-08-29 19:14 | ED ---
General Adult HPI - General Chief complaint: Fever Stated complaint: Whole Body Pain/Fever Time Seen by Provider: 08/29/24 18:58 Source: patient Mode of arrival: ambulatory Limitations: no limitations - History of Present Illness Initial comments: Dictation was produced using [email or web address] dictation software. please excuse any grammatical, word or spelling errors. Chief Complaint: 58-year-old male presents to the emergency department for fever History of Present Illness: Patient is 58-year-old male presents to the emergency department fever. He has been having fever for the last 2 days. Last week patient had shockwave lithotripsy and ureteral stent placement by urology. 2 days ago started having fever. Complaining of burning on urination. Denies any abdominal pain. No cough. No nasal congestion or sore throat. Seen by his primary care doctor recently was placed on ciprofloxacin and was given a ceftriaxone shot The ROS documented in this emergency department record has been reviewed and confirmed by me. Those systems with pertinent positive or negative responses have been documented in the HPI. All other systems are other negative and/or noncontributory. - Related Data Home Medications Medication Instructions Recorded Confirmed Anastrozole [Arimidex] 1 mg PO Q72H 11/27/19 08/22/24 Multivitamins, Thera [Multivitamin 1 tab PO DAILY 11/27/19 08/22/24 (formulary)] Testosterone Cypionate 200 mg IM FR 11/27/19 08/22/24 [Depo-Testosterone] Dextroamphetamine/Amphetamine 10 mg PO QAM 08/22/24 08/22/24 [Adderall Xr 10 mg Capsule] Tamsulosin HCl [Flomax] 0.4 mg PO QAM 08/22/24 08/22/24 tadalafiL 5 mg PO HS 08/22/24 08/22/24 Previous Rx's Medication Instructions Recorded Ketorolac [Toradol] 10 mg PO Q6HR PRN #10 tab 08/23/24 Allergies Allergy/AdvReac Type Severity Reaction Status Date / Time No Known Allergies Allergy Verified 08/29/24 18:22 Review of Systems ROS Statement: Those systems with pertinent positive or pertinent negative responses have been documented in the HPI. ROS Other: All systems not noted in ROS Statement are negative. Past Medical History Past Medical History: Cancer Additional Past Medical History / Comment(s): kidney stones, spondylosis, hx of skin CA History of Any Multi-Drug Resistant Organisms: None Reported Past Surgical History: Orthopedic Surgery Additional Past Surgical History / Comment(s): knee repair surgery 2018, skin CA removal basal cell carcinoma Past Anesthesia/Blood Transfusion Reactions: No Reported Reaction Additional Past Anesthesia/Blood Transfusion Reaction / Comment(s): No hx of blood tranfusion Past Psychological History: No Psychological Hx Reported Smoking Status: Former smoker General Exam - General Exam Comments Initial Comments: PHYSICAL EXAM: General Impression: Alert and oriented x3, malaised, warm to touch HEENT: Normocephalic atraumatic, extra-ocular movements intact, pupils equal and reactive to light bilaterally, mucous membranes moist. Cardiovascular: Heart regular rate and rhythm Chest: Able to complete full sentences, no retractions, no tachypnea Abdomen: abdomen soft, non-tender, non-distended, no organomegaly Musculoskeletal: Pulses present and equal in all extremities, no peripheral edema Motor: no focal deficits noted Neurological: CN II-XII grossly intact, no focal motor or sensory deficits noted Skin: Intact with no visualized rashes Psych: Normal affect and mood Limitations: no limitations Course Vital Signs 08/29/24 18:17 Temperature 102.9 F H Pulse Rate 121 H Respiratory 18 Rate Blood Pressure 124/64 O2 Sat by Pulse 96 Oximetry Procedures - Sepsis Sepsis Focused Exam #1 Time Sepsis Criteria Met: 21:18 Sepsis Focused Exam Date: 08/29/24 Sepsis Focused Exam Time: 21:18 Sepsis Focused Exam Complete: Yes Vital Signs & RN Notes Reviewed: Yes Capillary Refill: < 2 Seconds: Fingers, Toes Peripheral Pulses: Normal: Radial (R), Radial (L), Posterior Tibialis (R), Post erior Tibialis (L), Dorsalis Pedis (R), Dorsalis Pedis (L) Skin Color: Normal for Patient Respiratory Exam: normal lung sounds Cardiovascular Exam: tachycardia Medical Decision Making - Medical Decision Making Was pt. sent in by a medical professional or institution (, PA, COMBER SETTER, urgent care, hospital, or [place] health care facility...) When possible be specific @ -No Did you speak to anyone other than the patient for history (EMS, parent, family, police, friend...)? What history was obtained from this source @ -No Did you review nursing and triage notes (agree or disagree)? Why? @ -I reviewed and agree with nursing and triage notes Were old charts reviewed (outside hosp., previous admission, EMS record, old EKG, old radiological studies, urgent care reports/EKG's, [place] health care facility records)? Report findings @ -No old charts were reviewed Differential Diagnosis (chest pain, altered mental status, abdominal pain women, abdominal pain men, vaginal bleeding, musculoskeletal, weakness, fever, dyspnea, syncope, headache, dizziness, GI bleed, back pain, seizure, CVA, palpatations, mental health)? @ -Differential Fever: Pneumonia, viral URI, endocarditis, myocarditis, pericarditis, otitis, sinusitis, peritonsillar Abscess, retropharyngeal Abscess, epiglottitis, peritonitis, appendicitis, Yoli cystitis, diverticulitis, hepatitis, colitis, UTI, PID, TOA, pyelonephritis, prostatitis, epididymitis, meningitis, encephalitis, pulmonary embolism, CVA, thyroid storm, pancreatitis, adrenal crisis, cavernous sinus thrombosis, this is not meant to be an all-inclusive list. EKG interpreted by me (3pts min.). @ -None done X-rays interpreted by me (1pt min.). @ -Chest x-ray nonacute CT interpreted by me (1pt min.). @ -None done U/S interpreted by me (1pt. min.). @ -None done What testing was considered but not performed or refused? (CT, X-rays, U/S, labs)? Why? @ -None What meds were considered but not given or refused? Why? @ -None Was smoking cessation discussed for >3mins.? @ -No Were there social determinants of health that impacted care today? How? (Home lessness, low income, unemployed, alcoholism, drug addiction, transportation, low edu. Level, literacy, decrease access to med. care, [facility], rehab)? @ -No Was there de-escalation of care discussed even if they declined (Discuss DNR or withdrawal of care, Hospice)? DNR status @ -No What co-morbidities impacted this encounter? (DM, HTN, Smoking, COPD, CAD, Cancer, CVA, ARF, Chemo, Hep., AIDS, mental health diagnosis, sleep apnea, morbid obesity)? @ -None Was patient admitted / discharged? Hospital course, mention meds given and route, prescriptions, significant lab abnormalities, going to OR and other pertinent info. @ -59-year-old female with fever and constitutional symptoms after recent ureteral stent placement and lithotripsy. Vital signs upon arrival shows temperature 102.9 heart rate of 121. Clinical presentation concerning for sepsis. Laboratory evaluation obtained. Leukocytosis 16.12. Metabolic panel is unremarkable. Urinalysis positive for nitrate positive UTI. Viral testing negative. X-ray is nonacute. Patient does not meet criteria for severe sepsis nonetheless given boluses of IV fluids along with antibiotics. Case discussed with urologist request patient be admitted to medicine with urology on consult. Did you discuss the management of the patient with other professionals (professionals i.e. , PA, COMBER SETTER, lab, RT, psych nurse, social media editor, automotive center manager, teacher, juvenile detention officer, egg caser)? Give summary @ -Case discussed with urology discussed with hospitalist for admission Was critical care preformed (if so, how long)? @ -No Undiagnosed new problem with uncertain prognosis? @ -No Drug Therapy requiring intensive monitoring for toxicity (Heparin, Nitro, Insulin, Cardizem)? @ -No Were any procedures done? @ -No Diagnosis/symptom? Acute, or Chronic, or Acute on Chronic? Uncomplicated (without systemic symptoms) or Complicated (systemic symptoms)? @ -UTI sepsis Side effects of treatment? @ -No Exacerbation, Progression, or Severe Exacerbation? @ -No Poses a threat to life or bodily function? How? (Chest pain, USA, AR, pneumonia, PE, COPD, DKA, ARF, appy, cholecystitis, CVA, Diverticulitis, Homicidal, Suicidal, threat to staff... and all critical care pts) @ -yes - Lab Data Result diagrams: 08/29/24 19:49 08/29/24 20:31 Lab Results 08/29/24 08/29/24 08/29/24 Range/Units 18:20 19:49 19:49 WBC 16.12 H (4.50-10.00) 10*3/uL RBC 5.60 (4.40-5.60) 10*6/uL Hgb 17.8 H (13.0-17.0) g/dL Hct 50.8 H (39.6-50.0) % MCV 90.7 (80.0-97.0) fL MCH 31.8 (27.0-32.0) pg MCHC 35.0 (32.0-37.0) g/dL Plt Count 131 L (140-440) 10*3/uL MPV 11.6 (9.5-12.2) fL Immature Gran % (Auto) 0.4 % Neutrophils % 84.6 % Lymphocytes % 4.9 % Monocytes % 9.9 % Eosinophils % 0.0 % Basophils % 0.2 % Immature Gran # 0.07 H (0.00-0.04) 10*3/uL Neutrophils # 13.63 H (1.80-7.70) 10*3/uL Lymphocytes # 0.79 L (0.90-5.00) 10*3/uL Monocytes # 1.60 H (0.20-1.00) 10*3/uL Eosinophils # 0.00 L (0.04-0.35) 10*3/uL Basophils # 0.03 (0.00-0.10) 10*3/uL Immature Plt Fraction 4.8 (1.1-6.1) % Sodium (137-145) mmol/L Potassium (3.5-5.1) mmol/L Chloride (98-107) mmol/L Carbon Dioxide (22-30) mmol/L Anion Gap mmol/L BUN (9-20) mg/dL Creatinine (0.66-1.25) mg/dL Est GFR (CKD-EPI)AfAm (>60 ml/min/1.73 sqM) Est GFR (CKD-EPI)NonAf (>60 ml/min/1.73 sqM) Glucose (74-99) mg/dL Plasma Lactic Acid Jeramie (0.7-2.0) mmol/L Calcium (8.4-10.2) mg/dL Total Bilirubin (0.2-1.3) mg/dL AST (17-59) U/L ALT (4-49) U/L Alkaline Phosphatase (38-126) U/L Total Protein (6.3-8.2) g/dL Albumin (3.5-5.0) g/dL Urine Color Dark Brown Urine Appearance Cloudy (Clear) Urine pH 6.0 (5.0-8.0) Ur Specific [place] 1.023 (1.001-1.035) Urine Protein 2+ H (Negative) Urine Glucose (UA) Negative (Negative) Urine Ketones 1+ H (Negative) Urine Blood Large H (Negative) Urine Nitrite Positive (Negative) Urine Bilirubin 1+ H (Negative) Urine Urobilinogen 3.0 (<2.0) mg/dL Ur Leukocyte Esterase Large H (Negative) Urine RBC >182 H (0-5) /hpf Urine WBC 143 H (0-5) /hpf Urine Mucus Few H (None) /hpf Influenza Type A (PCR) Not Detected (Not Detectd) Influenza Type B (PCR) Not Detected (Not Detectd) RSV (PCR) Not Detected (Not Detectd) SARS-CoV-2 (PCR) Not Detected (Not Detectd) 08/29/24 08/29/24 Range/Units 19:49 20:31 WBC (4.50-10.00) 10*3/uL RBC (4.40-5.60) 10*6/uL Hgb (13.0-17.0) g/dL Hct (39.6-50.0) % MCV (80.0-97.0) fL MCH (27.0-32.0) pg MCHC (32.0-37.0) g/dL Plt Count (140-440) 10*3/uL MPV (9.5-12.2) fL Immature Gran % (Auto) % Neutrophils % % Lymphocytes % % Monocytes % % Eosinophils % % Basophils % % Immature Gran # (0.00-0.04) 10*3/uL Neutrophils # (1.80-7.70) 10*3/uL Lymphocytes # (0.90-5.00) 10*3/uL Monocytes # (0.20-1.00) 10*3/uL Eosinophils # (0.04-0.35) 10*3/uL Basophils # (0.00-0.10) 10*3/uL Immature Plt Fraction (1.1-6.1) % Sodium 134 L (137-145) mmol/L Potassium 3.7 (3.5-5.1) mmol/L Chloride 104 (98-107) mmol/L Carbon Dioxide 21 L (22-30) mmol/L Anion Gap 9 mmol/L BUN 18 (9-20) mg/dL Creatinine 1.57 H (0.66-1.25) mg/dL Est GFR (CKD-EPI)AfAm 56 (>60 ml/min/1.73 sqM) Est GFR (CKD-EPI)NonAf 48 (>60 ml/min/1.73 sqM) Glucose 123 H (74-99) mg/dL Plasma Lactic Acid Jeramie 1.0 (0.7-2.0) mmol/L Calcium 8.8 (8.4-10.2) mg/dL Total Bilirubin 1.3 (0.2-1.3) mg/dL AST 22 (17-59) U/L ALT 23 (4-49) U/L Alkaline Phosphatase 40 (38-126) U/L Total Protein 6.0 L (6.3-8.2) g/dL Albumin 3.5 (3.5-5.0) g/dL Urine Color Urine Appearance (Clear) Urine pH (5.0-8.0) Ur Specific [place] (1.001-1.035) Urine Protein (Negative) Urine Glucose (UA) (Negative) Urine Ketones (Negative) Urine Blood (Negative) Urine Nitrite (Negative) Urine Bilirubin (Negative) Urine Urobilinogen (<2.0) mg/dL Ur Leukocyte Esterase (Negative) Urine RBC (0-5) /hpf Urine WBC (0-5) /hpf Urine Mucus (None) /hpf Influenza Type A (PCR) (Not Detectd) Influenza Type B (PCR) (Not Detectd) RSV (PCR) (Not Detectd) SARS-CoV-2 (PCR) (Not Detectd) Disposition Clinical Impression: Sepsis secondary to UTI Disposition: ADMITTED IP TO THIS [facility] Condition: Fair Referrals: Devonte Carpenter MD [Primary Care Provider] - 1-2 days Decision Time: 21:17
[2024-08-29 19:58] LABS: Influenza A Not Detected (Not Detectd); Influenza B Not Detected (Not Detectd); RSV Not Detected (Not Detectd)
[2024-08-29 20:01] LABS: Basophils # (A) 0.03 10*3/uL (0.00-0.10); Basophils % (A) 0.2 %; HCT 50.8 % (39.6-50.0); HGB 17.8 g/dL (13.0-17.0); Immature Platelet Fraction 4.8 % (1.1-6.1); Lymphocytes # (A) 0.79 10*3/uL (0.90-5.00); Lymphocytes % (A) 4.9 %; MCH 31.8 pg (27.0-32.0); MCV 90.7 fL (80.0-97.0); Mean Platelet Volume 11.6 fL (9.5-12.2); Monocytes % (A) 9.9 %; Neutrophils # (A) 13.63 10*3/uL (1.80-7.70); Neutrophils % (A) 84.6 %; Platelet Count 131 10*3/uL (140-440); RDW 12.8 % (11.5-14.5); WBC 16.12 10*3/uL (4.50-10.00)
[2024-08-29] MEDS: LACTATED RINGERS 2,000 ML IV ONE (20:04)
[2024-08-29] MEDS: ACETAMINOPHEN IV (For NPO) 1,000 MG in EMPTY BAG 1 BAG IVPB STA (20:04)
[2024-08-29] MEDS: ONDANSETRON 4 MG/2 ML VIAL IVP STA (20:05)
[2024-08-29 20:19] LABS: Appearance,Urine Cloudy (Clear); Bilirubin,Urine 1+ (Negative); Blood,Urine Large (Negative); Color,Urine Dark Brown; Glucose,Urine (UA) Negative (Negative); Ketones,Urine 1+ (Negative); Leukocyte Esterase,Urine Large (Negative); Mucus,Urine Few /hpf; Nitrite,Urine Positive (Negative); Protein,Urine 2+ (Negative); RBC,Urine >182 /hpf (0-5); Specific Gravity,Urine 1.023 (1.001-1.035); WBC,Urine 143 /hpf (0-5)
--- NOTE | 2024-08-29 20:51 | XR ---
EXAMINATION TYPE: XR chest 2V DATE OF EXAM: 08/29/2024 8:25 PM COMPARISON: Chest radiographs from 11/27/2019. CLINICAL INDICATION: Male, 58 years old with history of fever; TECHNIQUE: XR chest 2V Frontal and lateral views of the chest. FINDINGS: Lungs/Pleura: There is no evidence of pleural effusion, focal consolidation, or pneumothorax. Pulmonary vascularity: Unremarkable. Heart/mediastinum: Cardiomediastinal silhouette is unremarkable. Musculoskeletal: No acute osseous pathology. Other findings: None IMPRESSION: No acute cardiopulmonary disease/process. [facility], , 08/29/2024 8:48 PM
[2024-08-29 21:06] LABS: ALT 23 U/L (4-49); AST 22 U/L (17-59); African American GFR (CKD) 56 (>60 ml/min/1.73 sqM); Albumin 3.5 g/dL (3.5-5.0); Alkaline Phosphatase 40 U/L (38-126); Anion Gap 9 mmol/L; Blood Urea Nitrogen 18 mg/dL (9-20); Calcium 8.8 mg/dL (8.4-10.2); Carbon Dioxide 21 mmol/L (22-30); Chloride 104 mmol/L (98-107); Glucose 123 mg/dL (74-99); Non-African American GFR(CKD) 48 (>60 ml/min/1.73 sqM); Potassium 3.7 mmol/L (3.5-5.1); Sodium 134 mmol/L (137-145); Total Bilirubin 1.3 mg/dL (0.2-1.3)
[2024-08-29] MEDS ORDERED: NALOXONE 0.4 MG/ML 1 ML VIAL IV PRN ×2 (21:27→21:34)
[2024-08-29] MEDS: PIPERACILLIN-TAZOBACTAM 3.375 GM in SODIUM CHLORIDE 0.9% 100 ML IVPB SCH (21:27)
[2024-08-29] MEDS ORDERED: ONDANSETRON 4 MG/2 ML VIAL IVP PRN (21:27)
[2024-08-29] MEDS: LACTATED RINGERS 1,000 ML IV SCH (21:31)
[2024-08-29] MEDS ORDERED: HYDROmorphone 1 MG/ML 1 ML SYRINGE IVP PRN (21:34)
[2024-08-29] MEDS ORDERED: HYDROcodone/APAP 5-325MG 1 EACH TAB PO PRN (21:34)
--- NOTE | 2024-08-29 21:59 | XR ---
EXAMINATION TYPE: XR KUB DATE OF EXAM: 08/29/2024 9:54 PM COMPARISON: 08/23/2024. CLINICAL INDICATION: Male, 58 years old with history of nephrolithiasis; [facility] TECHNIQUE: One radiographic view of the abdomen was obtained. FINDINGS: The bowel gas pattern is nonspecific without dilated loops of small or large bowel. . Fecal material and gas are demonstrated throughout the colon and rectum. There is no evidence for organome sebastián or pneumoperitoneum. No acute osseous process. Left ureteral stent with superior and inferior pigtails in appropriate position. Left renal calculi measuring up to 8 mm. Bowel obscures the right k idney. IMPRESSION: 1. Left ureteral stent appears in satisfactory position. Left renal calculi present. 2. Nonspecific bowel gas pattern without radiographic evidence for acute process. [facility], , 08/29/2024 9:57 PM
--- NOTE | 2024-08-30 00:02 | P.HPIM ---
History of Present Illness H&P Date: 08/29/24 Chief Complaint: hematuria, fevers 58-year-old male with a history of kidney stones with recent admission for impacted ureteral stone with hydronephrosis warranting lithotripsy and nephroureteral stent placement presenting today for fevers, flank pain, hematuria. Patient says that across the last 1-1/2 days he had increasing hematuria as well as flank pain, and then earlier today spiked a high-grade fever prompting his reevaluation in the emergency room. He recently had an operative procedure done in which she underwent lithotripsy and nephroureteral stent placement after being found to have impacted ureteral stone with left- sided hydronephrosis. Following this procedure he reported that his urine had returned to normal prior to suddenly turning bloody tinged again and then becoming grossly bloody. Based on these changes as well as the high-grade fever he came into the hospital suspecting infection. His review of systems is positive for fevers, chills, nausea, denies vomiting. He denies chest pain, palpitations, syncope, presyncope, cough, dyspnea, abdominal pain, diarrhea. In the emergency room, patient was febrile to 102.9, 124/64, heart rate 121, 96% on room air. CBC showed leukocytosis to 16.2, polycythemia to 17.8, left shift with neutrophil predominance. Basic metabolic panel showed sodium of 134, CO2 of 21, creatinine of 1.57, with a baseline of 1.3. UA showed 2+ protein, 1+ ketones, large blood, positive nitrite, 1+ bilirubin, large leukocyte esterase, greater than 182 red blood cells, 143 white blood cells. Influenza A, B, COVID, RSV were negative. Lactic acid was 1. Chest x-ray was unremarkable. KUB showed nephroureteral stent in good placement, presence of ureteral stone. Case was discussed with emergency room provider and decision was made to admit the patient as an inpatient for further management of sepsis secondary to pyelonephritis. All Systems reviewed and pertinent positives and negatives noted in HPI, all o ther symptoms are negative Gen: In NAD, non-toxic HEENT: normocephalic, atraumatic, hearing acuity is intant, mucous membranes moist CVS: perfusing all extremities well, no pitting edema, Respiratory: symmetric chest expansion, no accessory muscle use, GI: soft, NTTP, ND, : + suprapubic tenderness, + left-sided CVA tenderness MSK/Derm: no rashes, cyanosis Neuro: CN II-XII intact, no motor weakness, Psych: cooperative, euthymic mood, judgment and insight is intact Labs and imaging as above Assessment/plan: Sepsis secondary to pyelonephritis Obstructive uropathy Acute kidney injury superimposed on chronic kidney disease stage IIIa - Admit to inpatient - Zosyn 3.375 g every 8 hours - Blood cultures/urine cultures are pending - IV fluids: Lactated Ringer's at 130 cc/h - Zofran as needed, Dilaudid as needed - Renal ultrasound is pending Patient is full code Past Medical History Past Medical History: Cancer Additional Past Medical History / Comment(s): kidney stones, spondylosis, hx of skin CA History of Any Multi-Drug Resistant Organisms: None Reported Past Surgical History: Orthopedic Surgery Additional Past Surgical History / Comment(s): knee repair surgery 2018, skin CA removal basal cell carcinoma Past Anesthesia/Blood Transfusion Reactions: No Reported Reaction Additional Past Anesthesia/Blood Transfusion Reaction / Comment(s): No hx of blood tranfusion Past Psychological History: No Psychological Hx Reported Smoking Status: Former smoker Medications and Allergies Home Medications Medication Instructions Recorded Confirmed Type Anastrozole [Arimidex] 1 mg PO Q72H 11/27/19 08/22/24 History Multivitamins, Thera [Multivitamin 1 tab PO DAILY 11/27/19 08/22/24 History (formulary)] Testosterone Cypionate 200 mg IM FR 11/27/19 08/22/24 History [Depo-Testosterone] Dextroamphetamine/Amphetamine 10 mg PO QAM 08/22/24 08/22/24 History [Adderall Xr 10 mg Capsule] Tamsulosin HCl [Flomax] 0.4 mg PO QAM 08/22/24 08/22/24 History tadalafiL 5 mg PO HS 08/22/24 08/22/24 History Ketorolac [Toradol] 10 mg PO Q6HR PRN #10 tab 08/23/24 Rx Allergies Allergy/AdvReac Type Severity Reaction Status Date / Time No Known Allergies Allergy Verified 08/29/24 18:22 Physical Exam Osteopathic Statement: *. No significant issues noted on an osteopathic structural exam other than those noted in the History and Physical/Consult. Vitals: Vital Signs Temp Pulse Resp BP Pulse Ox 08/29/24 22:56 71 17 111/72 95 08/29/24 21:57 98.3 F 08/29/24 18:17 102.9 F H 121 H 18 124/64 96 Intake and Output 08/29/24 08/29/24 08/30/24 14:59 22:59 06:59 Other: Weight 98.883 kg Results CBC & Chem 7: 08/29/24 19:49 08/29/24 20:31 Labs: Abnormal Lab Results - Last 24 Hours (Table) 08/29/24 08/29/24 08/29/24 Range/Units 19:49 19:49 20:31 WBC 16.12 H (4.50-10.00) 10*3/uL Hgb 17.8 H (13.0-17.0) g/dL Hct 50.8 H (39.6-50.0) % Plt Count 131 L (140-440) 10*3/uL Immature Gran # 0.07 H (0.00-0.04) 10*3/uL Neutrophils # 13.63 H (1.80-7.70) 10*3/uL Lymphocytes # 0.79 L (0.90-5.00) 10*3/uL Monocytes # 1.60 H (0.20-1.00) 10*3/uL Eosinophils # 0.00 L (0.04-0.35) 10*3/uL Sodium 134 L (137-145) mmol/L Carbon Dioxide 21 L (22-30) mmol/L Creatinine 1.57 H (0.66-1.25) mg/dL Glucose 123 H (74-99) mg/dL Total Protein 6.0 L (6.3-8.2) g/dL Urine Protein 2+ H (Negative) Urine Ketones 1+ H (Negative) Urine Blood Large H (Negative) Urine Bilirubin 1+ H (Negative) Ur Leukocyte Esterase Large H (Negative) Urine RBC >182 H (0-5) /hpf Urine WBC 143 H (0-5) /hpf Urine Mucus Few H (None) /hpf
--- NOTE | 2024-08-30 01:25 | US ---
EXAM: US Retroperitoneal Limited, Renal CLINICAL HISTORY: Evaluate for potential hydronephrosis, ongoing stone TECHNIQUE: Real-time limited ultrasound of the retroperitoneum with image documentation. COMPARISON: KUB performed earlier FINDINGS: Right kidney: The right kidney measures 12.7 x 5.9 x 5.9 cm. No nephrolithiasis. No hydronephrosis. Left kidney: The left kidney measures 13.7 x 5.9 x 5.2 cm. There is moderate left hydronephrosis. The double-J ureteral stent is suggested in the left renal pelvis. There is a simple cyst involving the inferior pole of the left kidney measuring 6.4 x 7.2 x 6.3 cm. No internal architecture or solid components requiring follow-up. There is a simple cyst involving the superior pole of the left kidney measuring 1.6 x 1.5 x 1.3 cm. No internal architecture or solid components noted. Bladder: The distal loop in the double-J ureteral stent is noted in the bladder. The bladder stones. IMPRESSION: There is moderate left hydronephrosis. The double-J ureteral stent is suggested in the left renal pelvis.
[2024-08-30] MEDS: ACETAMINOPHEN TAB 325 MG TAB PO PRN (05:20)
[2024-08-30 08:31] LABS: Basophils # (A) 0.03 X 10*3/uL (0.00-0.10); Basophils % (A) 0.2 %; Eosinophils # (A) 0.03 X 10*3/uL (0.04-0.35); Eosinophils % (A) 0.2 %; HCT 53.5 % (39.6-50.0); Lymphocytes # (A) 1.09 X 10*3/uL (0.90-5.00); Lymphocytes % (A) 7.4 %; MCH 31.5 pg (27.0-32.0); MCHC 33.6 g/dL (32.0-37.0); MCV 93.7 FL (80.0-97.0); Monocytes # (A) 1.45 X 10*3/uL (0.20-1.00); Monocytes % (A) 9.9 %; NRBC Per 100 WBC 0 X 10*3/uL (0.00-0.01); Neutrophils # (A) 12.05 X 10*3/uL (1.80-7.70); Neutrophils % (A) 81.8 %; Platelet Count 143 X 10*3/uL (140-440); RBC 5.71 X 10*6/uL (4.40-5.60); RDW 13.2 % (11.5-14.5); WBC 14.72 X 10*3/uL (4.50-10.00)
[2024-08-30 09:06] LABS: Blood Urea Nitrogen 15.2 mg/dL (9.0-27.0); Calcium 8.8 mg/dL (8.7-10.3); Carbon Dioxide 25.5 mmol/L (21.6-31.8); Chloride 104 mmol/L (96-109); Glucose 112 mg/dL (70-110); Magnesium 2.1 mg/dL (1.5-2.4); Potassium 4.2 mmol/L (3.5-5.5); Sodium 141 mmol/L (135-145)
--- NOTE | 2024-08-30 14:50 | P.PN ---
Subjective Progress Note Date: 08/30/24 Hospital Course: 58-year-old male with a history of kidney stones with recent admission for impacted ureteral stone with hydronephrosis warranting lithotripsy and nephroureteral stent placement presenting today for fevers, flank pain, hematuria. Patient says that across the last 1-1/2 days he had increasing hematuria as well as flank pain, and then earlier today spiked a high-grade fever prompting his reevaluation in the emergency room. He recently had an operative procedure done in which she underwent lithotripsy and nephroureteral stent placement after being found to have impacted ureteral stone with left- sided hydronephrosis. Following this procedure he reported that his urine had returned to normal prior to suddenly turning bloody tinged again and then becoming grossly bloody. Based on these changes as well as the high-grade fever he came into the hospital suspecting infection. His review of systems is positive for fevers, chills, nausea, denies vomiting. He denies chest pain, pal pitations, syncope, presyncope, cough, dyspnea, abdominal pain, diarrhea. In the emergency room, patient was febrile to 102.9, 124/64, heart rate 121, 96% on room air. CBC showed leukocytosis to 16.2, polycythemia to 17.8, left shift with neutrophil predominance. Basic metabolic panel showed sodium of 134, CO2 of 21, creatinine of 1.57, with a baseline of 1.3. UA showed 2+ protein, 1+ ketones, large blood, positive nitrite, 1+ bilirubin, large leukocyte esterase, greater than 182 red blood cells, 143 white blood cells. Influenza A, B, COVID, RSV were negative. Lactic acid was 1. Chest x-ray was unremarkable. KUB showed nephroureteral stent in good placement, presence of ureteral stone. Case was discussed with emergency room provider and decision was made to admit the patient as an inpatient for further management of sepsis secondary to pyelonephritis. Subjective: Patient seen and examined at bedside. No acute events overnight. Reports left sided flank pain similar to yesterday. Denies fever, chills, chest pain shortness of breath, nausea or vomiting, diarrhea. Still reports burning with urination. Pertinent positives and negatives as discussed above, a complete review of systems was performed and all other systems are negative. Vitals: Signs Reviewed Physical Exam: General: nontoxic, no distress, appears at stated age Derm: warm, dry, intact Head: atraumatic, normocephalic, symmetric Eyes: EOMI, anicteric sclera Mouth: no lip lesion, mucus membranes moist Cardiovascular: S1 S2 reg, no murmur, rubs, or gallops Lungs: CTA bilateral, no rhonchi, no rales, no accessory muscle use Abdominal: soft, non-tender to palpataion, no appreciable organomegaly Extremities: no gross muscle atrophy, no edema, no contractures Neuro: Alert, Oriented, CNII-XII grossly intact, gait normal Psych: well appearing, appropriate affect Data Received Today: Pertinent Labs: WBC 14.72, hemoglobin 18, hematocrit 53.5, platelet 143, sodium 141, potassium 4.2, chloride 104, carbon dioxide 25.5, BUN 15.2, creatinine 1.6, glucose 112, magnesium 2.1 Imaging: Kidney/renal and bladder ultrasound showed moderate left hydronephrosis. The double-J ureteral stent is suggested in the left renal pelvis Assessment and Plan: Sepsis secondary to pyelonephritis Obstructive uropathy Acute kidney injury superimposed on chronic kidney disease stage IIIa -Continue Zosyn 3.375 g every 8 hours -Pending blood culture and urine culture results - IV fluids: Lactated Ringer's at 130 cc/h - Zofran as needed, Dilaudid as needed - Urology has been consulted - Monitor morning CBC and CMP Chronic: BPH CODE STATUS: Full code Disposition: Pending clinical course, likely discharge home in 24 to 48 hours Patient is severely ill, needs close monitoring. Prognosis guarded. I have seen and evaluated the patient today. Discussed with the resident and agree with the residents finding and plan as documented in the resident's note. Changes highlighted in blue font. Objective - Vital Signs Vital signs: Vital Signs Temp 97.4 F L 08/30/24 01:23 Pulse 66 08/30/24 01:23 Resp 18 08/30/24 01:23 BP 127/69 08/30/24 01:23 Pulse Ox 96 08/30/24 01:23 FiO2 Intake & Output 08/29/24 08/30/24 08/30/24 18:59 06:59 18:59 Weight 98.883 kg 98.883 kg Other: Voiding Method Toilet # Voids 1 - Labs CBC & Chem 7: 08/30/24 04:41 08/30/24 04:41 Labs: Abnormal Lab Results - Last 24 Hours (Table) 08/29/24 08/29/24 08/29/24 Range/Units 19:49 19:49 20:31 WBC 16.12 H (4.50-10.00) 10*3/uL Hgb 17.8 H (13.0-17.0) g/dL Hct 50.8 H (39.6-50.0) % Plt Count 131 L (140-440) 10*3/uL Immature Gran # 0.07 H (0.00-0.04) 10*3/uL Neutrophils # 13.63 H (1.80-7.70) 10*3/uL Lymphocytes # 0.79 L (0.90-5.00) 10*3/uL Monocytes # 1.60 H (0.20-1.00) 10*3/uL Eosinophils # 0.00 L (0.04-0.35) 10*3/uL Sodium 134 L (137-145) mmol/L Carbon Dioxide 21 L (22-30) mmol/L Creatinine 1.57 H (0.66-1.25) mg/dL Glucose 123 H (74-99) mg/dL Total Protein 6.0 L (6.3-8.2) g/dL Urine Protein 2+ H (Negative) Urine Ketones 1+ H (Negative) Urine Blood Large H (Negative) Urine Bilirubin 1+ H (Negative) Ur Leukocyte Esterase Large H (Negative) Urine RBC >182 H (0-5) /hpf Urine WBC 143 H (0-5) /hpf Urine Mucus Few H (None) /hpf
[2024-08-30] MEDS: PHENAZOPYRIDINE 200 MG TAB PO SCH (15:45)
--- NOTE | 2024-08-30 21:43 | P.GSCN ---
History of Present Illness Consult date: 08/30/24 Reason for Consult: Left ureteral renal stone, UTI History of present illness: This is a 58-year-old male with history of a 2 cm left-sided proximal ureteral stone, status post left sided ureteroscopy with holmium laser by Dr. Perez on August 23. For the past 48 hours patient started experiencing intermittent fevers associated with nausea and malaise. He was seen by his primary care physician and was started on Cipro and received a dose of IM ceftriaxone. He continued to have fevers and subsequently presented to the hospital. Patient was febrile on presentation. He underwent a renal ultrasound that showed no evidence of hydronephrosis, KUB was obtained which showed stent to be in adequate location. This morning on evaluation he indicated his weakness has improved. Patient is afebrile, this afternoon on evaluation. Review of Systems - Constitutional Reports chills, Reports fever, Reports malaise - Cardiovascular Denies chest pain, Denies shortness of breath - Respiratory Denies cough, Denies 7 - Gastrointestinal Reports abdominal pain, Reports nausea, Denies vomiting - Genitourinary Reports flank pain, Denies dysuria, Denies kidney stones - Neurological Denies headaches, Denies syncope Past Medical History Past Medical History: Cancer Additional Past Medical History / Comment(s): kidney stones, spondylosis, hx of skin CA History of Any Multi-Drug Resistant Organisms: None Reported Past Surgical History: Orthopedic Surgery Additional Past Surgical History / Comment(s): knee repair surgery 2018, skin CA removal basal cell carcinoma Past Anesthesia/Blood Transfusion Reactions: No Reported Reaction Additional Past Anesthesia/Blood Transfusion Reaction / Comm: No hx of blood tranfusion Past Psychological History: No Psychological Hx Reported Smoking Status: Former smoker Medications and Allergies Home Medications Medication Instructions Recorded Confirmed Type Anastrozole [Arimidex] 1 mg PO Q72H 11/27/19 08/30/24 History Multivitamins, Thera [Multivitamin 1 tab PO DAILY 11/27/19 08/30/24 History (formulary)] Testosterone Cypionate 200 mg IM FR 11/27/19 08/30/24 History [Depo-Testosterone] Dextroamphetamine/Amphetamine 10 mg PO DAILY PRN 08/22/24 08/30/24 History [Adderall Xr 10 mg Capsule] Tamsulosin HCl [Flomax] 0.4 mg PO DAILY 08/22/24 08/30/24 History tadalafiL 5 mg PO HS 08/22/24 08/30/24 History Ketorolac [Toradol] 10 mg PO Q6HR PRN #10 tab 08/23/24 08/30/24 Rx Ciprofloxacin HCl [Cipro] 500 mg PO BID 08/30/24 08/30/24 History Phenazopyridine [Pyridium] 200 mg PO TID 08/30/24 08/30/24 History Allergies Allergy/AdvReac Type Severity Reaction Status Date / Time No Known Allergies Allergy Verified 08/29/24 18:22 Surgical - Exam Vital Signs Temp Pulse Resp BP Pulse Ox 102.9 F H 121 H 18 124/64 96 08/29/24 18:17 08/29/24 18:17 08/29/24 18:17 08/29/24 18:17 08/29/24 18:17 - General no distress, moderate pain - ENT normal nares, normal mucosa - Respiratory normal expansion, normal respiratory effort - Abdomen Abdomen: soft - Psychiatric oriented to time, oriented to person, oriented to place Results - Labs 08/30/24 04:41 08/30/24 04:41 Abnormal Lab Results - Last 24 Hours (Table) 08/30/24 08/30/24 Range/Units 04:41 04:41 WBC 14.72 H (4.50-10.00) X 10*3/uL RBC 5.71 H (4.40-5.60) X 10*6/uL Hgb 18.0 H (13.0-17.0) g/dL Hct 53.5 H (39.6-50.0) % Immature Gran # 0.07 H (0.00-0.04) X 10*3/uL Neutrophils # 12.05 H (1.80-7.70) X 10*3/uL Monocytes # 1.45 H (0.20-1.00) X 10*3/uL Eosinophils # 0.03 L (0.04-0.35) X 10*3/uL Creatinine 1.6 H (0.6-1.5) mg/dL Est GFR (CKD-EPI) 50 L (>=60) BUN/Creatinine Ratio 9.50 L (12.00-20.00) Ratio Glucose 112 H (70-110) mg/dL Microbiology - Last 24 Hours (Table) 08/29/24 19:49 Urine Culture - Preliminary Urine,Voided Diabetes panel 08/30/24 Range/Units 04:41 Sodium 141 (135-145) mmol/L Potassium 4.2 (3.5-5.5) mmol/L Chloride 104 (96-109) mmol/L Carbon Dioxide 25.5 (21.6-31.8) mmol/L BUN 15.2 (9.0-27.0) mg/dL Creatinine 1.6 H (0.6-1.5) mg/dL Glucose 112 H (70-110) mg/dL Calcium 8.8 (8.7-10.3) mg/dL Calcium panel 08/30/24 Range/Units 04:41 Calcium 8.8 (8.7-10.3) mg/dL Pituitary panel 08/30/24 Range/Units 04:41 Sodium 141 (135-145) mmol/L Potassium 4.2 (3.5-5.5) mmol/L Chloride 104 (96-109) mmol/L Carbon Dioxide 25.5 (21.6-31.8) mmol/L BUN 15.2 (9.0-27.0) mg/dL Creatinine 1.6 H (0.6-1.5) mg/dL Glucose 112 H (70-110) mg/dL Calcium 8.8 (8.7-10.3) mg/dL Adrenal panel 08/30/24 Range/Units 04:41 Sodium 141 (135-145) mmol/L Potassium 4.2 (3.5-5.5) mmol/L Chloride 104 (96-109) mmol/L Carbon Dioxide 25.5 (21.6-31.8) mmol/L BUN 15.2 (9.0-27.0) mg/dL Creatinine 1.6 H (0.6-1.5) mg/dL Glucose 112 H (70-110) mg/dL Calcium 8.8 (8.7-10.3) mg/dL Assessment and Plan Assessment: 58-year-old male with postop fever and UTI following left-sided ureteroscopy with holmium laser, I reviewed his KUB the stent is in adequate location, no renal stones or more likely to be dusting fragments rather than an actual stones. At this time recommend keeping without on the hospital for another 24 hours for IV antibiotics, if patient remains afebrile and he can be discharged home on oral antibiotics. I advised him to keep his follow-up appointment with Dr. Jerez on September 04 for stent removal.
[2024-08-31 08:20] LABS: Basophils # (A) 0.03 X 10*3/uL (0.00-0.10); Basophils % (A) 0.3 %; Eosinophils # (A) 0.14 X 10*3/uL (0.04-0.35); Eosinophils % (A) 1.4 %; HCT 47.9 % (39.6-50.0); HGB 15.9 g/dL (13.0-17.0); Lymphocytes # (A) 1.19 X 10*3/uL (0.90-5.00); Lymphocytes % (A) 11.8 %; MCH 30.9 pg (27.0-32.0); MCHC 33.2 g/dL (32.0-37.0); MCV 93.2 FL (80.0-97.0); Mean Platelet Volume 11.7 FL (9.5-12.2); Monocytes # (A) 1.11 X 10*3/uL (0.20-1.00); NRBC Per 100 WBC 0 X 10*3/uL (0.00-0.01); Neutrophils # (A) 7.57 X 10*3/uL (1.80-7.70); Neutrophils % (A) 75.2 %; Platelet Count 151 X 10*3/uL (140-440); RBC 5.14 X 10*6/uL (4.40-5.60); RDW 13.1 % (11.5-14.5); WBC 10.07 X 10*3/uL (4.50-10.00)
[2024-08-31] MEDS: TAMSULOSIN 0.4 MG CAP.ER.24H PO SCH (08:26)
[2024-08-31 08:32] LABS: ALT 22 U/L (10-49); AST 16 U/L (14-35); Albumin 3.5 g/dL (3.8-4.9); Albumin/Globulin Ratio 1.59 Ratio (1.60-3.17); Alkaline Phosphatase 41 U/L (41-126); BUN/Creat Ratio 8.71 Ratio (12.00-20.00); Blood Urea Nitrogen 12.2 mg/dL (9.0-27.0); Calcium 8.6 mg/dL (8.7-10.3); Carbon Dioxide 25.2 mmol/L (21.6-31.8); Chloride 106 mmol/L (96-109); Globulin 2.2 g/dL (1.6-3.3); Glucose 101 mg/dL (70-110); Potassium 4.2 mmol/L (3.5-5.5); Sodium 141 mmol/L (135-145); Total Bilirubin 0.8 mg/dL (0.3-1.2); Total Protein 5.7 g/dL (6.2-8.2)
[2024-08-31] MEDS: ENOXAPARIN 40 MG/0.4 ML SYRINGE SQ SCH (10:43)
--- NOTE | 2024-08-31 14:23 | P.PN ---
Subjective Progress Note Date: 08/31/24 No acute overnight event, he is afebrile today white count is down to 10. Urine and blood culture are still pending Objective - Vital Signs Vital signs: Vital Signs Temp 98.0 F 08/31/24 13:26 Pulse 73 08/31/24 13:26 Resp 20 08/31/24 13:26 BP 124/78 08/31/24 13:26 Pulse Ox 94 L 08/31/24 13:26 FiO2 Intake & Output 08/30/24 08/31/24 08/31/24 18:59 06:59 18:59 Intake Total 2100 Balance 2100 Intake: Oral 2100 Other: Voiding Method Toilet Toilet Toilet # Voids 2 - Constitutional General appearance: Present: no acute distress - Gastrointestinal General gastrointestinal: Absent: tenderness - Psychiatric Psychiatric: Present: A&O x's 3 - Labs CBC & Chem 7: 08/31/24 04:43 08/31/24 04:43 Labs: Abnormal Lab Results - Last 24 Hours (Table) 08/31/24 08/31/24 Range/Units 04:43 04:43 WBC 10.07 H (4.50-10.00) X 10*3/uL Monocytes # 1.11 H (0.20-1.00) X 10*3/uL Est GFR (CKD-EPI) 58 L (>=60) BUN/Creatinine Ratio 8.71 L (12.00-20.00) Ratio Calcium 8.6 L (8.7-10.3) mg/dL Total Protein 5.7 L (6.2-8.2) g/dL Albumin 3.5 L (3.8-4.9) g/dL Albumin/Globulin Ratio 1.59 L (1.60-3.17) Ratio Microbiology - Last 24 Hours (Table) 08/29/24 20:31 Blood Culture - Preliminary Blood 08/29/24 19:49 Urine Culture - Preliminary Urine,Voided Assessment and Plan Assessment: 58-year-old male with postop fever and UTI following left-sided ureteroscopy with holmium laser, I reviewed his KUB the stent is in adequate location, no renal stones or more likely to be dusting fragments rather than an actual stones. At this time recommend keeping without on the hospital for another 24 hours for IV antibiotics, if patient remains afebrile and he can be discharged home on oral antibiotics. He is currently on IV Zosyn. Both urine and blood cultures are pending -Continue with IV antibiotics -I advised him to keep his follow-up appointment with Dr. Jerez on September 04 for stent removal.
--- NOTE | 2024-08-31 15:03 | P.PN ---
Subjective Hospital Course: 58-year-old male with a history of kidney stones with recent admission for impacted ureteral stone with hydronephrosis warranting lithotripsy and nephroureteral stent placement presenting today for fevers, flank pain, hematuria. Patient says that across the last 1-1/2 days he had increasing hematuria as well as flank pain, and then earlier today spiked a high-grade fever prompting his reevaluation in the emergency room. He recently had an operative procedure done in which she underwent lithotripsy and nephroureteral stent placement after being found to have impacted ureteral stone with left- sided hydronephrosis. Following this procedure he reported that his urine had returned to normal prior to suddenly turning bloody tinged again and then becoming grossly bloody. Based on these changes as well as the high-grade fever he came into the hospital suspecting infection. His review of systems is positive for fevers, chills, nausea, denies vomiting. He denies chest pain, palpitations, syncope, presyncope, cough, dyspnea, abdominal pain, diarrhea. In the emergency room, patient was febrile to 102.9, 124/64, heart rate 121, 96% on room air. CBC showed leukocytosis to 16.2, polycythemia to 17.8, left shift with neutrophil predominance. Basic metabolic panel showed sodium of 134, CO2 of 21, creatinine of 1.57, with a baseline of 1.3. UA showed 2+ protein, 1+ ketones, large blood, positive nitrite, 1+ bilirubin, large leukocyte esterase, greater than 182 red blood cells, 143 white blood cells. Influenza A, B, COVID, RSV were negative. Lactic acid was 1. Chest x-ray was unremarkable. KUB showed nephroureteral stent in good placement, presence of ureteral stone. Case was discussed with emergency room provider and decision was made to admit the patient as an inpatient for further management of sepsis secondary to pyelonephritis. Subjective: Patient seen and examined at bedside. No acute events overnight. Reports left sided flank pain similar to yesterday. Denies fever, chills, chest pain sh ortness of breath, nausea or vomiting, diarrhea. Still reports burning with urination. Pertinent positives and negatives as discussed above, a complete review of systems was performed and all other systems are negative. Vitals: Signs Reviewed Physical Exam: General: nontoxic, no distress, appears at stated age Derm: warm, dry, intact Head: atraumatic, normocephalic, symmetric Eyes: EOMI, anicteric sclera Mouth: no lip lesion, mucus membranes moist Cardiovascular: S1 S2 reg, no murmur, rubs, or gallops Lungs: CTA bilateral, no rhonchi, no rales, no accessory muscle use Abdominal: soft, non-tender to palpataion, no appreciable organomegaly Extremities: no gross muscle atrophy, no edema, no contractures Neuro: Alert, Oriented, CNII-XII grossly intact, gait normal Psych: well appearing, appropriate affect Data Received Today: Pertinent Labs: WBC 10.7, hemoglobin 15.9, creatinine 1.4 Imaging: No new imaging Assessment and Plan: Sepsis secondary to pyelonephritis Obstructive uropathy Acute kidney injury superimposed on chronic kidney disease stage IIIa -Continue Zosyn 3.375 g every 8 hours -Pending blood culture and urine culture results - DC IV fluids - Zofran as needed, Dilaudid as needed - Monitor morning CBC and CMP Urology recommended to keep patient for another 24 hours for IV antibiotics, if patient remains afebrile can be discharged home on oral antibiotics. Patient has a follow-up appointment with Dr. Jerez on September 04 for stent removal. Chronic: BPH CODE STATUS: Full code Disposition: Pending clinical course, likely discharge home in 24 to 48 hours I have seen and evaluated the patient today. Discussed with the resident and agree with the residents finding and plan as documented in the resident's note. Changes highlighted in blue font. Objective - Vital Signs Vital signs: Vital Signs Temp 98 F 08/31/24 02:00 Pulse 76 08/31/24 02:00 Resp 17 08/31/24 02:00 BP 110/73 08/31/24 02:00 Pulse Ox 95 08/31/24 02:00 FiO2 Intake & Output 08/30/24 08/31/24 08/31/24 18:59 06:59 18:59 Intake Total 2100 Balance 2100 Intake: Oral 2100 Other: Voiding Method Toilet Toilet # Voids 2 - Labs CBC & Chem 7: 08/31/24 04:43 08/31/24 04:43 Labs: Abnormal Lab Results - Last 24 Hours (Table) 08/30/24 08/30/24 Range/Units 04:41 04:41 WBC 14.72 H (4.50-10.00) X 10*3/uL RBC 5.71 H (4.40-5.60) X 10*6/uL Hgb 18.0 H (13.0-17.0) g/dL Hct 53.5 H (39.6-50.0) % Immature Gran # 0.07 H (0.00-0.04) X 10*3/uL Neutrophils # 12.05 H (1.80-7.70) X 10*3/uL Monocytes # 1.45 H (0.20-1.00) X 10*3/uL Eosinophils # 0.03 L (0.04-0.35) X 10*3/uL Creatinine 1.6 H (0.6-1.5) mg/dL Est GFR (CKD-EPI) 50 L (>=60) BUN/Creatinine Ratio 9.50 L (12.00-20.00) Ratio Glucose 112 H (70-110) mg/dL Microbiology - Last 24 Hours (Table) 08/29/24 20:31 Blood Culture - Preliminary Blood 08/29/24 19:49 Urine Culture - Preliminary Urine,Voided
--- NOTE | 2024-09-01 11:28 | P.DS ---
Providers Date of admission: 08/29/24 21:28 Expected date of discharge: 09/01/24 Attending physician: Kin Corey MD Consults: 08/29/24 21:27 Consult Physician Routine Consulting Provider: Michael Araiza Consult Reason/Comments: uro sepsis Do you want consulting provider notified?: Already Contacted Primary care physician: Devonte Dominguez [facility] Course: I have seen and evaluated the patient today. Discussed with the resident and agree with the residents finding and plan as documented in the resident's note. Changes highlighted in blue font. Hospital course 58-year-old male with a history of kidney stones with recent admission for impacted ureteral stone with hydronephrosis warranting lithotripsy and nephroureteral stent placement presenting for fevers, flank pain, hematuria. Patient says that across the last 1-1/2 days he had increasing hematuria as well as flank pain, and then earlier today spiked a high-grade fever prompting his reevaluation in the emergency room. He recently had an operative procedure done in which she underwent lithotripsy and nephroureteral stent placement after being found to have impacted ureteral stone with left-sided hydronephrosis. Following this procedure he reported that his urine had returned to normal prior to suddenly turning bloody tinged again and then becoming grossly bloody. Based on these changes as well as the high-grade fever he came into the hospital suspecting infection. His review of systems is positive for fevers, chills, nausea, denies vomiting. He denies chest pain, palpitations, syncope, presyncope, cough, dyspnea, abdominal pain, diarrhea. In the emergency room, patient was febrile to 102.9, 124/64, heart rate 121, 96% on room air. CBC showed leukocytosis to 16.2, polycythemia to 17.8, left shift with neutrophil predominance. Basic metabolic panel showed sodium of 134, CO2 of 21, creatinine of 1.57, with a baseline of 1.3. UA showed 2+ protein, 1+ ketones, large blood, positive nitrite, 1+ bilirubin, large leukocyte esterase, greater than 182 red blood cells, 143 white blood cells. Influenza A, B, COVID, RSV were negative. Lactic acid was 1. Chest x-ray was unremarkable. KUB showed nephroureteral stent in good placement, presence of ureteral stone. Case was discussed with emergency room provider and decision was made to admit the patient as an inpatient for further management of sepsis secondary to pyelonephritis. Ultrasound of kidney and bladder showed moderate left hydronephrosis. The double-J ureteral stent is suggested in the left renal pelvis. Patient was started on IV Zosyn on 08/29/2024. Patient's symptoms improved over the course of hospitalization. He is medically stable to be discharged on 09/01/2024. Patient has an upcoming appointment with Dr. Jerez on 09/04/2024 for stent removal. Patient will be discharged on oral antibiotics Augmentin [id number] twice daily for 7 days to complete total 10 days treatment for sepsis 2/2 complicated UTI. Final urine culture showed Enterococcus faecalis. Preliminary blood culture showed no growth. Recommend patient to follow-up with PCP in 1 to 3 days after discharge. Physical examination GENERAL: This is a 58-year-old in no apparent distress at the time of examination. Pleasant and cooperative. HEENT: Head is atraumatic, normocephalic. Pupils are equal, round, and reactive to light. Sclerae anicteric. Conjunctivae are clear. Mucus membranes of the mouth are moist. Neck is supple. RESPIRATORY: Clear to auscultation. No wheezes, rales, or rhonchi. No use of accessory muscles. Patient maintaining oxygen saturation greater than 92%. No chest wall tenderness is noted on palpation or with deep breathing. CARDIOVASCULAR: Regular rate and rhythm. S1 and S2 noted. No systolic or diastolic murmur auscultated. No JVD noted. No S3 or S4 noted. GASTROINTESTINAL: No distention noted. Abdomen soft and round. Normal active bowel sounds auscultated x 4 quadrants. No pain or tenderness noted upon palpation. INTEGUMENTARY: No cyanosis. No jaundice. No rashes noted. No cellulitis noted. EXTREMITIES: 2+ peripheral pulses. No evidence of peripheral edema. No calf tenderness noted. NEUROLOGIC: Cranial nerves II-XII intact. PSYCHIATRIC: Awake, alert, and oriented X 3. Appropriate affect. Intact judgement and insight. Discharge diagnosis Sepsis secondary to pyelonephritis, resolved Obstructive uropathy CRISTAL superimposed on chronic kidney disease stage IIIa, improved Patient Condition at Discharge: Fair Plan - Discharge Summary Discharge Rx Participant: No New Discharge Prescriptions: New Amoxic-Pot Clav 875-125Mg [Augmentin 875-125] 1 tab PO Q12HR 7 Days #14 tab Continue Testosterone Cypionate [Depo-Testosterone] 200 mg IM FR Multivitamins, Thera [Multivitamin (formulary)] 1 tab PO DAILY Anastrozole [Arimidex] 1 mg PO Q72H Dextroamphetamine/Amphetamine [Adderall Xr 10 mg Capsule] 10 mg PO DAILY PRN PRN Reason: adhd tadalafiL 5 mg PO HS Tamsulosin HCl [Flomax] 0.4 mg PO DAILY Ketorolac [Toradol] 10 mg PO Q6HR PRN #10 tab PRN Reason: Pain Phenazopyridine [Pyridium] 200 mg PO TID Discontinued Ciprofloxacin HCl [Cipro] 500 mg PO BID Discharge Medication List Anastrozole [Arimidex] 1 mg PO Q72H 11/27/19 [History] Multivitamins, Thera [Multivitamin (formulary)] 1 tab PO DAILY 11/27/19 [History] Testosterone Cypionate [Depo-Testosterone] 200 mg IM FR 11/27/19 [History] Dextroamphetamine/Amphetamine [Adderall Xr 10 mg Capsule] 10 mg PO DAILY PRN 08/22/24 [History] Tamsulosin HCl [Flomax] 0.4 mg PO DAILY 08/22/24 [History] tadalafiL 5 mg PO HS 08/22/24 [History] Ketorolac [Toradol] 10 mg PO Q6HR PRN #10 tab 08/23/24 [Rx] Phenazopyridine [Pyridium] 200 mg PO TID 08/30/24 [History] Amoxic-Pot Clav 875-125Mg [Augmentin 875-125] 1 tab PO Q12HR 7 Days #14 tab 09/01/24 [Rx] Follow up Appointment(s)/Referral(s): Devonte Carpenter MD [Primary Care Provider] - 1-2 days Patient Instructions/Handouts: Kidney Stones (DC) Discharge Disposition: HOME SELF-CARE
[2024-09-01 14:46] VITALS: BP 131/82; PULSE 65; RESP 16; TEMP 98.1
[2024-09-01 15:06] LABS: Basophils # (A) 0.04 X 10*3/uL (0.00-0.10); Basophils % (A) 0.5 %; Eosinophils # (A) 0.16 X 10*3/uL (0.04-0.35); Eosinophils % (A) 2.2 %; HCT 49.2 % (39.6-50.0); HGB 16.2 g/dL (13.0-17.0); Lymphocytes # (A) 0.93 X 10*3/uL (0.90-5.00); Lymphocytes % (A) 12.6 %; MCH 30.5 pg (27.0-32.0); MCHC 32.9 g/dL (32.0-37.0); MCV 92.7 FL (80.0-97.0); Mean Platelet Volume 11.2 FL (9.5-12.2); Monocytes # (A) 0.66 X 10*3/uL (0.20-1.00); NRBC Per 100 WBC 0 X 10*3/uL (0.00-0.01); Neutrophils # (A) 5.56 X 10*3/uL (1.80-7.70); Neutrophils % (A) 75.4 %; Platelet Count 189 X 10*3/uL (140-440); RBC 5.31 X 10*6/uL (4.40-5.60); WBC 7.37 X 10*3/uL (4.50-10.00)
[2024-09-01 15:10] LABS: ALT 26 U/L (10-49); AST 16 U/L (14-35); Albumin 3.7 g/dL (3.8-4.9); Albumin/Globulin Ratio 1.61 Ratio (1.60-3.17); Alkaline Phosphatase 43 U/L (41-126); BUN/Creat Ratio 7.62 Ratio (12.00-20.00); Blood Urea Nitrogen 9.9 mg/dL (9.0-27.0); Calcium 8.9 mg/dL (8.7-10.3); Carbon Dioxide 23.5 mmol/L (21.6-31.8); Chloride 107 mmol/L (96-109); Globulin 2.3 g/dL (1.6-3.3); Glucose 132 mg/dL (70-110); Potassium 4.1 mmol/L (3.5-5.5); Sodium 142 mmol/L (135-145); Total Bilirubin 0.5 mg/dL (0.3-1.2)
== END 2024-09-01 18:02 | disposition home or self-care (01) | DRG 862 ==
LOC: EC 18:06 → 5NMEDONC 21:28 → 4SSUR 21:36
PROVIDERS: ADMIT Internal Medicine; ATTEND Internal Medicine
DX: T81.44XA Sepsis following a procedure, initial encounter (principal); A41.81 Sepsis due to Enterococcus; N18.31 Chronic kidney disease, stage 3a; N13.6 Pyonephrosis; N17.9 Acute kidney failure, unspecified; D75.1 Secondary polycythemia; N40.0 Benign prostatic hyperplasia without lower urinary tract symptoms; M47.9 Spondylosis, unspecified; R11.0 Nausea; R31.0 Gross hematuria; Z96.0 Presence of urogenital implants; Z28.21 Immunization not carried out because of patient refusal; Z87.891 Personal history of nicotine dependence; Z87.442 Personal history of urinary calculi; Z85.828 Personal history of other malignant neoplasm of skin; Z79.899 Other long term (current) drug therapy; Z11.52 Encounter for screening for COVID-19; Z79.890 Hormone replacement therapy
CPT/HCPCS: 36415; 71046; 74018; 76770; 80048; 80053; 81001; 83605; 83735; 85025; 87040; 87077; 87086; 87186; 87636; 96361; 96365; 96366; 96367; 96375; 99285

== ENCOUNTER 2024-10-11 19:28 | Emergency (ER) | payer BC ==
[2024-10-11 19:32] VITALS: RESP 18
[2024-10-11 19:58] LABS: Amorphous Sediment,Urine Rare /hpf; Appearance,Urine Cloudy (Clear); Bilirubin,Urine Negative (Negative); Blood,Urine Negative (Negative); Color,Urine Colorless; Glucose,Urine (UA) Negative (Negative); Ketones,Urine Negative (Negative); Leukocyte Esterase,Urine Trace (Negative); Nitrite,Urine Negative (Negative); Protein,Urine Negative (Negative); RBC,Urine 1 /hpf (0-5); Specific Gravity,Urine 1.015 (1.001-1.035); Urobilinogen,Urine <2.0 mg/dL (<2.0); WBC,Urine 7 /hpf (0-5)
--- NOTE | 2024-10-11 21:12 | ED ---
General Adult HPI - General Source: patient, family, RN notes reviewed, old records reviewed Mode of arrival: ambulatory Limitations: no limitations <Tino Melo - Last Filed: 10/11/24 23:53> <Janine Montero - Last Filed: 10/12/24 02:44> - General Chief complaint: Urogenital Stated complaint: lower abdominal pain and pressure Time Seen by Provider: 10/11/24 20:56 - History of Present Illness Initial comments: 58-year-old male presents with abdominal pain and difficulty urinating. Of note patient has a recent history of developing kidney stones which required lithotripsy and stent placement, shortly after the stent placement he developed an infection and had urosepsis for which he was admitted to this hospital for treatment. Patient was then discharged, a few days later had the stent removed and since then had been symptom-free and was urinating without any issues. Reports 2 days ago he started developing similar symptoms of difficulty with urination as well as burning sensation with urination and some left groin and left abdominal pain. States that it started to feel similar to the symptoms he had before his recent admission for urosepsis. Reports yesterday he was feeling warm and had some low-grade fevers. States he tried to call his urologist office today but was not able to get through, talked with his PCP and decided to come into the ER for further evaluation. (Tino Melo) - Related Data Home Medications Medication Instructions Recorded Confirmed Anastrozole [Arimidex] 1 mg PO Q72H 11/27/19 08/30/24 Multivitamins, Thera [Multivitamin 1 tab PO DAILY 11/27/19 08/30/24 (formulary)] Testosterone Cypionate 200 mg IM FR 11/27/19 08/30/24 [Depo-Testosterone] Dextroamphetamine/Amphetamine 10 mg PO DAILY PRN 08/22/24 08/30/24 [Adderall Xr 10 mg Capsule] Tamsulosin HCl [Flomax] 0.4 mg PO DAILY 08/22/24 08/30/24 tadalafiL 5 mg PO HS 08/22/24 08/30/24 Phenazopyridine [Pyridium] 200 mg PO TID 08/30/24 08/30/24 Previous Rx's Medication Instructions Recorded Ketorolac [Toradol] 10 mg PO Q6HR PRN #10 tab 08/23/24 Amoxic-Pot Clav 875-125Mg 1 tab PO Q12HR 7 Days #14 tab 09/01/24 [Augmentin 875-125] Cephalexin [Keflex] 500 mg PO Q6HR 9 Days #36 cap 10/12/24 Allergies Allergy/AdvReac Type Severity Reaction Status Date / Time No Known Allergies Allergy Verified 10/11/24 19:32 Review of Systems ROS Other: All systems not noted in ROS Statement are negative. <Tino Melo - Last Filed: 10/11/24 23:53> ROS Other: All systems not noted in ROS Statement are negative. <Janine Montero - Last Filed: 10/12/24 02:44> ROS Statement: Those systems with pertinent positive or pertinent negative responses have been documented in the HPI. Past Medical History Past Medical History: Cancer Additional Past Medical History / Comment(s): kidney stones, spondylosis, hx of skin CA History of Any Multi-Drug Resistant Organisms: None Reported Past Surgical History: Orthopedic Surgery Additional Past Surgical History / Comment(s): knee repair surgery 2018, skin CA removal basal cell carcinoma Past Anesthesia/Blood Transfusion Reactions: No Reported Reaction Additional Past Anesthesia/Blood Transfusion Reaction / Comment(s): No hx of blood tranfusion Past Psychological History: No Psychological Hx Reported Smoking Status: Former smoker Past Alcohol Use History: Rare Past Drug Use History: None Reported <Tino Melo - Last Filed: 10/11/24 23:53> General Exam Limitations: no limitations <Lorie,Tino - Last Filed: 10/11/24 23:53> - General Exam Comments Initial Comments: GENERAL: In no apparent distress at the time of examination. Pleasant and cooperative. HEENT: Head is atraumatic, normocephalic. Pupils are equal, round, and reactive to light. Sclerae anicteric. Conjunctivae are clear. Mucus membranes of the mouth are moist. Neck is supple. RESPIRATORY: Clear to auscultation. No wheezes, rales, or rhonchi. No use of accessory muscles. Patient maintaining oxygen saturation greater than 92%. No chest wall tenderness is noted on palpation or with deep breathing. CARDIOVASCULAR: Regular rate and rhythm. S1 and S2 noted. No systolic or diastolic murmur auscultated. No JVD noted. No S3 or S4 noted. GASTROINTESTINAL: No distention noted. Abdomen soft and round. Normal active bowel sounds auscultated x 4 quadrants. Tenderness to palpation of the left lower quadrant extending into the groin. INTEGUMENTARY: No cyanosis. No jaundice. No rashes noted. No cellulitis noted. EXTREMITIES: 2+ peripheral pulses. No evidence of peripheral edema. No calf tenderness noted. PSYCHIATRIC: Awake, alert, and oriented X 3. Appropriate affect. Intact judgement and insight. (Tino Melo) Course Vital Signs 10/11/24 10/11/24 10/12/24 19:29 22:32 00:50 Temperature 98.0 F 98.3 F Pulse Rate 98 92 74 Respiratory 18 18 18 Rate Blood Pressure 145/89 132/82 150/91 O2 Sat by Pulse 96 97 98 Oximetry Medical Decision Making <Tino Melo - Last Filed: 10/11/24 23:53> - Lab Data Result diagrams: 10/11/24 23:39 10/11/24 23:39 <Janine Montero - Last Filed: 10/12/24 02:44> - Medical Decision Making Was pt. sent in by a medical professional or institution (, PA, SUPERVISOR WELDING EQUIPMENT REPAIRER, urgent care, hospital, or care home...) When possible be specific @ -No Did you speak to anyone other than the patient for history (EMS, parent, family, police, friend...)? What history was obtained from this source @ -Yes, family Did you review nursing and triage notes (agree or disagree)? Why? @ -I reviewed and agree with nursing and triage notes Were old charts reviewed (outside hosp., previous admission, EMS record, old EKG, old radiological studies, urgent care reports/EKG's, care home records)? Report findings @ -Yes, old charts from previous admission were reviewed. Differential Diagnosis? @ -Differential Abdominal Pain Men: Urethral stenosis, ureteral stenosis, urosepsis, nephrolithiasis, appendicitis, cholecystitis, diverticulosis, ischemic bowel, pancreatitis, hepatitis, UTI, gastroenteritis, AAA, incarcerated hernia, bowel obstruction, constipation, inflammatory bowel, hepatitis, peptic ulcer disease, splenic infarction, perforated viscus, testicular torsion, this is not meant to be an all-inclusive list EKG interpreted by me (3pts min.). @ -As above X-rays interpreted by me (1pt min.). @ -None done CT interpreted by me (1pt min.). @ -Pending U/S interpreted by me (1pt. min.). @ -None done What testing was considered but not performed or refused? (CT, X-rays, U/S, labs)? Why? @ -None What meds were considered but not given or refused? Why? @ -None Did you discuss the management of the patient with other professionals (channing ceballos i.e. , PA, SUPERVISOR WELDING EQUIPMENT REPAIRER, lab, RT, psych nurse, geriatric social work professor, municipal bond trader, teacher, financial administration officer, case loader operator)? Give summary @ -No Was smoking cessation discussed for >3mins.? @ -No Was critical care preformed (if so, how long)? @ -No Were there social determinants of health that impacted care today? How? (Homelessness, low income, unemployed, alcoholism, drug addiction, transportation, low edu. Level, literacy, decrease access to med. care, shelter, rehab)? @ -No Was there de-escalation of care discussed even if they declined (Discuss DNR or withdrawal of care, Hospice)? DNR status @ -No What co-morbidities impacted this encounter? (DM, HTN, Smoking, COPD, CAD, Cancer, CVA, ARF, Chemo, Hep., AIDS, mental health diagnosis, sleep apnea, morbid obesity)? @ -None Was patient admitted / discharged? Hospital course, mention meds given and route, prescriptions, significant lab abnormalities, going to OR and other pertinent info. @ -58-year-old male presents with complaints of right groin pain right abdominal pain and dysuria. Patient has a recent history of kidney stones for which he underwent lithotripsy and stent placement. Shortly after the stents were placed he developed an infection and urosepsis for which he was admitted and treated with IV antibiotics. Patient then discharged and had stents removed, and was feeling fine until a couple days ago when he started having similar symptoms to before he developed an infection. I ordered CBC CMP and CT abdomen pelvis. At the end of my shift I signed out the patient to Dr. Montero pending blood work and CT abdomen pelvis. Undiagnosed new problem with uncertain prognosis? @ -No Drug Therapy requiring intensive monitoring for toxicity (Heparin, Nitro, Insulin, Cardizem)? @ -No Were any procedures done? @ -No Diagnosis/symptom? @ -Default Acute, or Chronic, or Acute on Chronic? @ -Default Uncomplicated (without systemic symptoms) or Complicated (systemic symptoms)? @ -Default Side effects of treatment? @ -No Exacerbation, Progression, or Severe Exacerbation? @ -No Poses a threat to life or bodily function? How? (Chest pain, USA, DC, pneumonia, PE, COPD, DKA, ARF, appy, cholecystitis, CVA, Diverticulitis, Homicidal, S uicidal, threat to staff... and all critical care pts) @ -No (Tino Melo) Patient was presented and signed out to myself by resident physician. He is a 58 old gentleman, past medical history of ureterolithiasis and urosepsis presenting today for left lower quad abdominal pain with dysuria. Urinalysis significant forTrace leukocyte esterase, 7 white blood cells, 1 red blood cell, white blood cell count 10.[address] abdomen pelvis showed small kidney stone within the left kidney but no other ureterolithiasis noted. Though urinalysis is questionable for urinary tract infection, patient is significantly symptomatic and has been septic from this before send given a dose of IV Rocephin, started on Keflex and discharged home. Undiagnosed new problem with uncertain prognosis? @ -No Drug Therapy requiring intensive monitoring for toxicity (Heparin, Nitro, Insulin, Cardizem)? @ -No Were any procedures done? @ -No Diagnosis/symptom? @ -Default Acute, or Chronic, or Acute on Chronic? @ -Default Uncomplicated (without systemic symptoms) or Complicated (systemic symptoms)? @ -Default Side effects of treatment? @ -No Exacerbation, Progression, or Severe Exacerbation? @ -No Poses a threat to life or bodily function? How? (Chest pain, USA, DC, pneumonia, PE, COPD, DKA, ARF, appy, cholecystitis, CVA, Diverticulitis, Homicidal, Suicidal, threat to staff... and all critical care pts) @ -No (Janine Montero) - Lab Data Lab Results 10/11/24 10/11/24 10/11/24 Range/Units 19:37 23:39 23:39 WBC 10.59 H (4.50-10.00) 10*3/uL RBC 5.48 (4.40-5.60) 10*6/uL Hgb 17.3 H (13.0-17.0) g/dL Hct 50.3 H (39.6-50.0) % MCV 91.8 (80.0-97.0) fL MCH 31.6 (27.0-32.0) pg MCHC 34.4 (32.0-37.0) g/dL Plt Count 172 (140-440) 10*3/uL MPV 10.9 (9.5-12.2) fL Immature Gran % (Auto) 0.3 % Neutrophils % 73.2 % Lymphocytes % 16.8 % Monocytes % 8.3 % Eosinophils % 1.0 % Basophils % 0.4 % Immature Gran # 0.03 (0.00-0.04) 10*3/uL Neutrophils # 7.75 H (1.80-7.70) 10*3/uL Lymphocytes # 1.78 (0.90-5.00) 10*3/uL Monocytes # 0.88 (0.20-1.00) 10*3/uL Eosinophils # 0.11 (0.04-0.35) 10*3/uL Basophils # 0.04 (0.00-0.10) 10*3/uL Sodium 138 (137-145) mmol/L Potassium 4.1 (3.5-5.1) mmol/L Chloride 103 (98-107) mmol/L Carbon Dioxide 25 (22-30) mmol/L Anion Gap 10 mmol/L BUN 22 H (9-20) mg/dL Creatinine 1.15 (0.66-1.25) mg/dL Est GFR (CKD-EPI)AfAm 81 (>60 ml/min/1.73 sqM) Est GFR (CKD-EPI)NonAf 70 (>60 ml/min/1.73 sqM) Glucose 107 H (74-99) mg/dL Calcium 9.6 (8.4-10.2) mg/dL Total Bilirubin 0.9 (0.2-1.3) mg/dL AST 32 (17-59) U/L ALT 34 (4-49) U/L Alkaline Phosphatase 55 (38-126) U/L Total Protein 7.1 (6.3-8.2) g/dL Albumin 4.3 (3.5-5.0) g/dL Urine Color Colorless Urine Appearance Cloudy (Clear) Urine pH 7.0 (5.0-8.0) Ur Specific [place] 1.015 (1.001-1.035) Urine Protein Negative (Negative) Urine Glucose (UA) Negative (Negative) Urine Ketones Negative (Negative) Urine Blood Negative (Negative) Urine Nitrite Negative (Negative) Urine Bilirubin Negative (Negative) Urine Urobilinogen <2.0 (<2.0) mg/dL Ur Leukocyte Esterase Trace H (Negative) Urine RBC 1 (0-5) /hpf Urine WBC 7 H (0-5) /hpf Amorphous Sediment Rare H (None) /hpf Disposition <Tino Melo - Last Filed: 10/11/24 23:53> Is patient prescribed a controlled substance at d/c from ED?: No <Janine Montero - Last Filed: 10/12/24 02:44> Clinical Impression: Urinary tract infection Disposition: HOME SELF-CARE Condition: Good Instructions (If sedation given, give patient instructions): Urinary Tract Infection in Men (ED) Additional Instructions: Every disease is a spectrum and a small chance still exists that a serious condition could develop, for this reason, please monitor yourself closely for new, changing or worsening symptoms, symptoms that do not begin to improve over the next 48 hours, fever, uncontrollable pain, noticeable blood in your urine, inability to tolerate/keep down fluids or your medications, inability to follow up with outpatient providers as instructed and should you experience these symptoms or should you have any further concerns for your wellbeing please return to the ED or call 911 immediately. PLEASE call your primary care physician as soon as possible to arrange / discuss plan for followup appointment. Appointment in the next 1-3 days is strongly encouraged if possible. PLEASE let us know here before you leave if there is anything further we can do to be of any assistance. Take care and feel Better! Prescriptions: Cephalexin [Keflex] 500 mg PO Q6HR 9 Days #36 cap Referrals: Devonte Carpenter MD [Primary Care Provider] - 1-2 days
[2024-10-11 23:53] LABS: Basophils # (A) 0.04 10*3/uL (0.00-0.10); Basophils % (A) 0.4 %; Eosinophils # (A) 0.11 10*3/uL (0.04-0.35); HCT 50.3 % (39.6-50.0); HGB 17.3 g/dL (13.0-17.0); Lymphocytes # (A) 1.78 10*3/uL (0.90-5.00); Lymphocytes % (A) 16.8 %; MCH 31.6 pg (27.0-32.0); MCHC 34.4 g/dL (32.0-37.0); MCV 91.8 fL (80.0-97.0); Mean Platelet Volume 10.9 fL (9.5-12.2); Monocytes # (A) 0.88 10*3/uL (0.20-1.00); Monocytes % (A) 8.3 %; Neutrophils # (A) 7.75 10*3/uL (1.80-7.70); Neutrophils % (A) 73.2 %; Platelet Count 172 10*3/uL (140-440); RBC 5.48 10*6/uL (4.40-5.60); RDW 13.6 % (11.5-14.5); WBC 10.59 10*3/uL (4.50-10.00)
[2024-10-12 00:12] LABS: ALT 34 U/L (4-49); AST 32 U/L (17-59); African American GFR (CKD) 81 (>60 ml/min/1.73 sqM); Albumin 4.3 g/dL (3.5-5.0); Alkaline Phosphatase 55 U/L (38-126); Anion Gap 10 mmol/L; Blood Urea Nitrogen 22 mg/dL (9-20); Calcium 9.6 mg/dL (8.4-10.2); Carbon Dioxide 25 mmol/L (22-30); Chloride 103 mmol/L (98-107); Glucose 107 mg/dL (74-99); Non-African American GFR(CKD) 70 (>60 ml/min/1.73 sqM); Potassium 4.1 mmol/L (3.5-5.1); Sodium 138 mmol/L (137-145); Total Bilirubin 0.9 mg/dL (0.2-1.3); Total Protein 7.1 g/dL (6.3-8.2)
--- NOTE | 2024-10-12 01:59 | CT ---
EXAM: CT Abdomen and Pelvis With Intravenous Contrast CLINICAL HISTORY: CT Reason: Abd and pelvic pain TECHNIQUE: Axial computed tomography images of the abdomen and pelvis with intravenous contrast. CTDI is 25 mGy and DLP is 1326 mGy-cm. This CT exam was performed using one or more of the following dose reduction techniques: automated exposure control, adjustment of the mA and/or kV according to patient size, and/or use of iterative reconstruction technique. COMPARISON: 08/13/2024 FINDINGS: Lung bases: Unremarkable. No mass. No consolidation. ABDOMEN: Liver: The liver is enlarged measuring 20 cm craniocaudad. No focal liver lesion is seen. Gallbladder and bile ducts: Unremarkable. No calcified stones. No ductal dilation. Pancreas: Unremarkable. No mass. No ductal dilation. Spleen: Unremarkable. No splenomegaly. Adrenals: Unremarkable. No mass. Kidneys and ureters: Delayed images show normal renal contrast excretion bilaterally. Nonobstructive 3 mm caliceal calculi in the lower pole of the left kidney. No hydronephrosis or ureterolithiasis is seen. There is a 6.6 cm simple cyst in the right kidney. No follow-up is required. 1 cm simple cysts in the left kidney. No follow-up is required. Stomach and bowel: Unremarkable. No obstruction. No mucosal thickening. PELVIS: Appendix: The appendix is not visible. Bowel loops are nondilated. No acute inflammatory changes are seen involving the bowel. Bladder: Unremarkable. No mass. Reproductive: Unremarkable as visualized. ABDOMEN and PELVIS: Intraperitoneal space: Unremarkable. No free air. No significant fluid collection. Bones/joints: Mild degenerative changes throughout the spine including spondylolysis at L5 and grade 1 spondylolisthesis of L5 on S1. No acute fracture. No dislocation. Soft tissues: Unremarkable. Vasculature: Unremarkable. No abdominal aortic aneurysm. Lymph nodes: Unremarkable. No enlarged lymph nodes. IMPRESSION: 1. The appendix is not visible. Bowel loops are nondilated. No acute inflammatory changes are seen involving the bowel. 2. Nonobstructive 3 mm caliceal calculi in the lower pole of the left kidney. No hydronephrosis or ureterolithiasis is seen.
[2024-10-12] MEDS: cefTRIAXone IN SWFI 1,000 MG/10 ML SYRINGE IVP STA (03:15)
[2024-10-12] MEDS: CEPHALEXIN 500MG STARTER PACK 4 CAP BTL PO STA (03:16)
[2024-10-12] MEDS: TAMSULOSIN 0.4 MG CAP.ER.24H PO STA (03:16)
[2024-10-12 03:18] VITALS: BP 139/89; PULSE 81; TEMP 98.4
== END 2024-10-12 03:20 | disposition home or self-care (01) ==
LOC: EC 19:28
DX: N39.0 Urinary tract infection, site not specified (principal); Z87.442 Personal history of urinary calculi; Z87.891 Personal history of nicotine dependence
CPT/HCPCS: 36415; 80053; 85025; 81001; 74177; 99285; 96374; J0696; Q9967